=== PATIENT | male | born 1940 | race Caucasian/White ===

== ENCOUNTER 2017-12-16 08:19 | Inpatient (IN) | payer MEDICARE, OTHER ==
[2017-12-16] MEDS: ASPIRIN 325 MG TAB PO (08:58)
[2017-12-16 10:37] LABS: ADD MAN DIFF? NO
[2017-12-16 10:38] LABS: BASOPHILS % 0.4 % (0.0-2.0); EOSINOPHILS # 0.1 10^3/ul (0.0-0.5); EOSINOPHILS % 1.2 % (0.0-7.0); HEMATOCRIT 36.7 % (42.0-52.0); LYMPHOCYTES # 1.2 10^3/ul (0.8-2.9); MEAN CORPUSCULAR HGB CONC 32.7 g/dl (32.0-37.0); MEAN CORPUSCULAR VOLUME 88.6 fl (82.0-101.0); MEAN PLATELET VOLUME 8.4 fl (7.4-10.4); MONOCYTE # 0.5 10^3/ul (0.3-0.9); MONOCYTES % 6.5 % (0.0-11.0); NEUTROPHIL # 6.4 10^3/ul (1.6-7.5); NEUTROPHILS % 77.3 % (39.0-77.0); PLATELET COUNT 266 10^3/UL (140-415); RED BLOOD COUNT 4.14 10^6/ul (4.70-6.10); RED CELL DISTRIBUTION WIDTH 14.3 % (11.5-14.5)
[2017-12-16 10:38] LABS: WHITE BLOOD COUNT 8.3 10^3/ul (4.8-10.8)
[2017-12-16 10:59] LABS: ALANINE AMINOTRANSFERASE 21 IU/L (13-69); ALBUMIN 3.4 g/dl (3.3-4.9); ALBUMIN/GLOBULIN RATIO 1.17; ALKALINE PHOSPHATASE 114 IU/L (42-121); ANION GAP 13 (8-16); ASPARTATE AMINO TRANSFERASE 15 IU/L (15-46); BILIRUBIN,INDIRECT 0.5 mg/dl (0-1.1); BILIRUBIN,TOTAL 0.5 mg/dl (0.2-1.3); BLOOD UREA NITROGEN 23 mg/dl (7-20); CALCIUM 8.7 mg/dl (8.4-10.2); CARBON DIOXIDE 24 mmol/L (21-31); CHLORIDE 109 mmol/L (97-110); CREATINE KINASE 26 IU/L (23-200); CREATININE 1.04 mg/dl (0.61-1.24); GLUCOSE 93 mg/dl (70-220); POTASSIUM 4.1 mmol/L (3.5-5.1); SODIUM 142 mmol/L (135-144); TOTAL PROTEIN 6.3 g/dl (6.1-8.1)
[2017-12-16] MEDS ORDERED: ACETAMINOPHEN 325 MG TAB PO ×2 (11:00→17:30)
[2017-12-16] MEDS ORDERED: ONDANSETRON 4 MG INJ IV (11:00)
[2017-12-16 11:12] LABS: INR 1.12; PROTIME 14.6 Sec (11.9-14.9); PT RATIO 1.1
[2017-12-16 11:13] LABS: PARTIAL THROMBOPLASTIN TIME 35.1 Sec (25.0-35.0)
[2017-12-16 11:41] LABS: CK INDEX 1.7; CK-MB 0.44 ng/ml (0.0-2.4); TROPONIN-I < 0.012 ng/ml (0.000-0.120)
[2017-12-16 11:42] LABS: B-TYPE NATRIURETIC PEPTIDE 386 PG/ML (0-450)
[2017-12-16] MEDS ORDERED: NACL 0.9% 3 ML SYG IV (17:30)
[2017-12-16] MEDS ORDERED: GUAIFENESIN/DM 5ML CUP PO (17:30)
[2017-12-16] MEDS: GABAPENTIN 100 MG CAP PO (20:31)
[2017-12-16] MEDS: METOPROLOL 25 MG TAB PO (20:32)
[2017-12-16] MEDS: FAMOTIDINE 20 MG INJ IV (20:32)
[2017-12-16] MEDS: QUETIAPINE 25 MG TAB PO ×2 (20:32→21:00)
[2017-12-16] MEDS: morphine 2 MG INJ IV (20:33)
[2017-12-16] MEDS: MELATONIN 3 MG TABLET PO (21:00)
[2017-12-16 21:35] LABS: CREATINE KINASE 29 IU/L (23-200)
[2017-12-16 21:48] LABS: CK INDEX 1.8
[2017-12-16 21:55] LABS: CK-MB 0.52 ng/ml (0.0-2.4); TROPONIN-I < 0.012 ng/ml (0.000-0.120)
[2017-12-17] MEDS: morphine 2 MG INJ IV ×5 (00:32→21:22)
[2017-12-17 03:51] LABS: CREATINE KINASE 30 IU/L (23-200)
[2017-12-17 03:58] LABS: CK INDEX 1.4
[2017-12-17 04:07] LABS: CK-MB 0.43 ng/ml (0.0-2.4); TROPONIN-I < 0.012 ng/ml (0.000-0.120)
[2017-12-17 06:50] LABS: ADD MAN DIFF? NO; BASOPHILS % 0.3 % (0.0-2.0); EOSINOPHILS # 0.2 10^3/ul (0.0-0.5); EOSINOPHILS % 2.2 % (0.0-7.0); HEMATOCRIT 36.1 % (42.0-52.0); HEMOGLOBIN 11.4 g/dl (14.0-18.0); LYMPHOCYTES # 1.3 10^3/ul (0.8-2.9); LYMPHOCYTES % 18.4 % (15.0-51.0); MEAN CORPUSCULAR HEMOGLOBIN 28.6 pg (29.0-33.0); MEAN CORPUSCULAR HGB CONC 31.6 g/dl (32.0-37.0); MEAN CORPUSCULAR VOLUME 90.5 fl (82.0-101.0); MEAN PLATELET VOLUME 8.7 fl (7.4-10.4); MONOCYTE # 0.7 10^3/ul (0.3-0.9); MONOCYTES % 9.3 % (0.0-11.0); NEUTROPHIL # 4.8 10^3/ul (1.6-7.5); NEUTROPHILS % 69.2 % (39.0-77.0); PLATELET COUNT 243 10^3/UL (140-415); RED BLOOD COUNT 3.99 10^6/ul (4.70-6.10); RED CELL DISTRIBUTION WIDTH 14.6 % (11.5-14.5)
[2017-12-17 07:19] LABS: ALANINE AMINOTRANSFERASE 17 IU/L (13-69); ALBUMIN 3.2 g/dl (3.3-4.9); ALBUMIN/GLOBULIN RATIO 1.23; ALKALINE PHOSPHATASE 90 IU/L (42-121); ANION GAP 13 (8-16); ASPARTATE AMINO TRANSFERASE 13 IU/L (15-46); BILIRUBIN,INDIRECT 0.4 mg/dl (0-1.1); BILIRUBIN,TOTAL 0.4 mg/dl (0.2-1.3); BLOOD UREA NITROGEN 24 mg/dl (7-20); CALCIUM 8.4 mg/dl (8.4-10.2); CARBON DIOXIDE 26 mmol/L (21-31); CHLORIDE 107 mmol/L (97-110); CREATININE 1.07 mg/dl (0.61-1.24); GLUCOSE 94 mg/dl (70-220); SODIUM 142 mmol/L (135-144); TOTAL PROTEIN 5.8 g/dl (6.1-8.1)
[2017-12-17 07:48] LABS: HEMOGLOBIN A1C 5.4 % (0-5.9)
[2017-12-17] MEDS: METOPROLOL 25 MG TAB PO ×2 (09:00→21:00)
[2017-12-17] MEDS ORDERED: ENOXAPARIN 40 MG/0.4 ML SYG SC (09:00)
[2017-12-17] MEDS: QUETIAPINE 25 MG TAB PO ×3 (09:00→21:00)
[2017-12-17] MEDS ORDERED: ENOXAPARIN 30 MG/0.3 ML SYG SC (09:00)
[2017-12-17] MEDS: GABAPENTIN 100 MG CAP PO ×3 (09:02→20:49)
[2017-12-17] MEDS: ASPIRIN 81 MG TAB PO (09:02)
[2017-12-17] MEDS: FAMOTIDINE 20 MG INJ IV ×2 (09:02→20:49)
[2017-12-17] MEDS: AMIODARONE 200 MG TAB PO (09:04)
[2017-12-17] MEDS: FINASTERIDE 5 MG TAB PO (09:05)
[2017-12-17] MEDS: APIXABAN 5 MG TABLET PO ×2 (11:53→20:49)
[2017-12-17] MEDS: MELATONIN 3 MG TABLET PO (21:00)
[2017-12-18] MEDS ORDERED: PENDING SANTYL ORDER FOR WOUND CARE XX (01:30)
[2017-12-18] MEDS: morphine 2 MG INJ IV ×3 (02:43→20:49)
[2017-12-18 06:19] LABS: ADD MAN DIFF? NO
[2017-12-18 06:26] LABS: WHITE BLOOD COUNT 6.4 10^3/ul (4.8-10.8)
[2017-12-18 06:26] LABS: BASOPHILS % 0.6 % (0.0-2.0); EOSINOPHILS # 0.2 10^3/ul (0.0-0.5); EOSINOPHILS % 3.6 % (0.0-7.0); HEMATOCRIT 37.4 % (42.0-52.0); HEMOGLOBIN 11.4 g/dl (14.0-18.0); LYMPHOCYTES # 1.7 10^3/ul (0.8-2.9); LYMPHOCYTES % 25.7 % (15.0-51.0); MEAN CORPUSCULAR HEMOGLOBIN 28.4 pg (29.0-33.0); MEAN CORPUSCULAR HGB CONC 30.5 g/dl (32.0-37.0); MEAN CORPUSCULAR VOLUME 93.3 fl (82.0-101.0); MEAN PLATELET VOLUME 8.5 fl (7.4-10.4); MONOCYTE # 0.6 10^3/ul (0.3-0.9); MONOCYTES % 9.7 % (0.0-11.0); NEUTROPHIL # 3.9 10^3/ul (1.6-7.5); NEUTROPHILS % 60.1 % (39.0-77.0); PLATELET COUNT 244 10^3/UL (140-415); RED BLOOD COUNT 4.01 10^6/ul (4.70-6.10); RED CELL DISTRIBUTION WIDTH 14.6 % (11.5-14.5)
[2017-12-18 06:54] LABS: ANION GAP 12 (8-16); BLOOD UREA NITROGEN 22 mg/dl (7-20); CALCIUM 8.3 mg/dl (8.4-10.2); CARBON DIOXIDE 27 mmol/L (21-31); CHLORIDE 107 mmol/L (97-110); CREATININE 1.07 mg/dl (0.61-1.24); GLUCOSE 94 mg/dl (70-220); SODIUM 142 mmol/L (135-144)
[2017-12-18] MEDS: FAMOTIDINE 20 MG INJ IV (08:27)
[2017-12-18] MEDS: FINASTERIDE 5 MG TAB PO (08:29)
[2017-12-18] MEDS: APIXABAN 5 MG TABLET PO ×2 (08:29→20:46)
[2017-12-18] MEDS: GABAPENTIN 100 MG CAP PO ×3 (08:29→20:46)
[2017-12-18] MEDS: AMIODARONE 200 MG TAB PO (08:29)
[2017-12-18] MEDS: METOPROLOL 25 MG TAB PO ×2 (08:30→20:48)
[2017-12-18] MEDS: ASPIRIN 81 MG TAB PO (08:31)
[2017-12-18] MEDS: QUETIAPINE 25 MG TAB PO ×2 (08:31→20:48)
[2017-12-18] MEDS: MELATONIN 3 MG TABLET PO (20:48)
[2017-12-19] MEDS: morphine LIQ (10 MG/5 ML) CUP PO ×4 (00:30→20:28)
[2017-12-19] MEDS: MELATONIN 3 MG TABLET PO (01:45)
[2017-12-19 07:06] LABS: CHOL/HDL RATIO 3.7 RATIO; HDL CHOLESTEROL 48 mg/dl (31-75); LDL CHOLESTEROL,CALCULATED 117 mg/dl; TRIGLYCERIDES 68 mg/dl (0-149)
[2017-12-19 07:06] LABS: CHOLESTEROL 179 mg/dl (100-200)
[2017-12-19 07:21] LABS: FREE T4 (FREE THYROXINE) 1.79 ng/dl (0.85-1.93)
[2017-12-19] MEDS: GABAPENTIN 100 MG CAP PO ×3 (08:57→20:27)
[2017-12-19] MEDS: APIXABAN 5 MG TABLET PO ×2 (08:58→20:27)
[2017-12-19] MEDS: FINASTERIDE 5 MG TAB PO (08:58)
[2017-12-19] MEDS: METOPROLOL 25 MG TAB PO (09:00)
[2017-12-19] MEDS: QUETIAPINE 25 MG TAB PO ×2 (09:00→20:54)
[2017-12-19] MEDS: AMIODARONE 200 MG TAB PO (09:00)
[2017-12-19] MEDS ORDERED: hydrALAzine 20 MG INJ IV (21:00)
[2017-12-20] MEDS: MELATONIN 3 MG TABLET PO (00:25)
[2017-12-20] MEDS: morphine LIQ (10 MG/5 ML) CUP PO ×4 (03:18→20:19)
[2017-12-20 05:49] LABS: ADD MAN DIFF? NO
[2017-12-20 05:50] LABS: WHITE BLOOD COUNT 7.6 10^3/ul (4.8-10.8)
[2017-12-20 05:50] LABS: BASOPHILS % 0.5 % (0.0-2.0); EOSINOPHILS # 0.3 10^3/ul (0.0-0.5); EOSINOPHILS % 3.6 % (0.0-7.0); HEMATOCRIT 37.4 % (42.0-52.0); HEMOGLOBIN 11.8 g/dl (14.0-18.0); LYMPHOCYTES # 1.6 10^3/ul (0.8-2.9); LYMPHOCYTES % 21.2 % (15.0-51.0); MEAN CORPUSCULAR HEMOGLOBIN 29.2 pg (29.0-33.0); MEAN CORPUSCULAR HGB CONC 31.6 g/dl (32.0-37.0); MEAN CORPUSCULAR VOLUME 92.6 fl (82.0-101.0); MEAN PLATELET VOLUME 8.7 fl (7.4-10.4); MONOCYTE # 0.7 10^3/ul (0.3-0.9); MONOCYTES % 9.5 % (0.0-11.0); NEUTROPHIL # 4.9 10^3/ul (1.6-7.5); NEUTROPHILS % 64.7 % (39.0-77.0); PLATELET COUNT 247 10^3/UL (140-415); RED BLOOD COUNT 4.04 10^6/ul (4.70-6.10); RED CELL DISTRIBUTION WIDTH 14.3 % (11.5-14.5)
[2017-12-20 06:43] LABS: ANION GAP 11 (8-16); BLOOD UREA NITROGEN 26 mg/dl (7-20); CALCIUM 8.4 mg/dl (8.4-10.2); CARBON DIOXIDE 26 mmol/L (21-31); CHLORIDE 110 mmol/L (97-110); CREATININE 1.19 mg/dl (0.61-1.24); GLUCOSE 89 mg/dl (70-220); POTASSIUM 4.2 mmol/L (3.5-5.1); SODIUM 143 mmol/L (135-144)
[2017-12-20] MEDS: GABAPENTIN 100 MG CAP PO ×3 (08:09→20:18)
[2017-12-20] MEDS: FINASTERIDE 5 MG TAB PO (08:09)
[2017-12-20] MEDS: APIXABAN 5 MG TABLET PO ×2 (08:09→20:18)
[2017-12-20] MEDS: AMIODARONE 200 MG TAB PO (08:10)
[2017-12-20] MEDS: QUETIAPINE 25 MG TAB PO ×2 (08:12→20:19)
[2017-12-21] MEDS: morphine LIQ (10 MG/5 ML) CUP PO ×4 (00:24→23:13)
[2017-12-21] MEDS: MELATONIN 3 MG TABLET PO ×2 (00:25→23:12)
[2017-12-21] MEDS: ACETAMINOPHEN 325 MG TAB PO ×2 (03:17→13:08)
[2017-12-21 06:41] LABS: ADD MAN DIFF? NO
[2017-12-21 06:45] LABS: BASOPHILS % 0.5 % (0.0-2.0); EOSINOPHILS # 0.2 10^3/ul (0.0-0.5); EOSINOPHILS % 3.7 % (0.0-7.0); HEMATOCRIT 35.5 % (42.0-52.0); HEMOGLOBIN 11.1 g/dl (14.0-18.0); LYMPHOCYTES # 1.7 10^3/ul (0.8-2.9); MEAN CORPUSCULAR HEMOGLOBIN 28.6 pg (29.0-33.0); MEAN CORPUSCULAR HGB CONC 31.3 g/dl (32.0-37.0); MEAN CORPUSCULAR VOLUME 91.5 fl (82.0-101.0); MONOCYTE # 0.6 10^3/ul (0.3-0.9); MONOCYTES % 10.3 % (0.0-11.0); NEUTROPHIL # 3.6 10^3/ul (1.6-7.5); PLATELET COUNT 242 10^3/UL (140-415); RED BLOOD COUNT 3.88 10^6/ul (4.70-6.10); RED CELL DISTRIBUTION WIDTH 14.5 % (11.5-14.5)
[2017-12-21 06:45] LABS: WHITE BLOOD COUNT 6.2 10^3/ul (4.8-10.8)
[2017-12-21 07:11] LABS: ANION GAP 13 (8-16); BLOOD UREA NITROGEN 24 mg/dl (7-20); CALCIUM 8.3 mg/dl (8.4-10.2); CARBON DIOXIDE 26 mmol/L (21-31); CHLORIDE 106 mmol/L (97-110); CREATININE 1.04 mg/dl (0.61-1.24); GLUCOSE 89 mg/dl (70-220); POTASSIUM 4.4 mmol/L (3.5-5.1); SODIUM 141 mmol/L (135-144)
[2017-12-21] MEDS: QUETIAPINE 25 MG TAB PO ×2 (09:00→20:29)
[2017-12-21] MEDS: AMIODARONE 200 MG TAB PO (09:06)
[2017-12-21] MEDS: GABAPENTIN 100 MG CAP PO ×3 (09:06→20:28)
[2017-12-21] MEDS: APIXABAN 5 MG TABLET PO ×2 (09:07→20:29)
[2017-12-21] MEDS: FINASTERIDE 5 MG TAB PO (09:07)
[2017-12-21] MEDS: AMLODIPINE 2.5 MG TAB PO (09:08)
[2017-12-21] MEDS: NITROGLYCERIN (SL) 0.4 MG TAB SL (12:09)
[2017-12-22] MEDS: ACETAMINOPHEN 325 MG TAB PO ×2 (02:38→11:37)
[2017-12-22] MEDS: morphine LIQ (10 MG/5 ML) CUP PO ×4 (03:27→20:11)
[2017-12-22 06:33] LABS: ADD MAN DIFF? NO
[2017-12-22 06:41] LABS: BASOPHILS % 0.6 % (0.0-2.0); EOSINOPHILS # 0.3 10^3/ul (0.0-0.5); HEMATOCRIT 36.3 % (42.0-52.0); HEMOGLOBIN 11.6 g/dl (14.0-18.0); LYMPHOCYTES # 1.7 10^3/ul (0.8-2.9); LYMPHOCYTES % 26.3 % (15.0-51.0); MEAN CORPUSCULAR HEMOGLOBIN 29.1 pg (29.0-33.0); MONOCYTE # 0.6 10^3/ul (0.3-0.9); MONOCYTES % 9.4 % (0.0-11.0); NEUTROPHIL # 3.9 10^3/ul (1.6-7.5); NEUTROPHILS % 59.4 % (39.0-77.0); PLATELET COUNT 252 10^3/UL (140-415); RED BLOOD COUNT 3.99 10^6/ul (4.70-6.10); RED CELL DISTRIBUTION WIDTH 14.5 % (11.5-14.5)
[2017-12-22 06:41] LABS: WHITE BLOOD COUNT 6.6 10^3/ul (4.8-10.8)
[2017-12-22 07:23] LABS: ANION GAP 13 (8-16); BLOOD UREA NITROGEN 25 mg/dl (7-20); CALCIUM 8.6 mg/dl (8.4-10.2); CARBON DIOXIDE 26 mmol/L (21-31); CHLORIDE 107 mmol/L (97-110); CREATININE 1.02 mg/dl (0.61-1.24); GLUCOSE 98 mg/dl (70-220); POTASSIUM 4.4 mmol/L (3.5-5.1); SODIUM 142 mmol/L (135-144)
[2017-12-22] MEDS: QUETIAPINE 25 MG TAB PO ×3 (09:00→21:00)
[2017-12-22] MEDS: GABAPENTIN 100 MG CAP PO ×3 (09:22→21:39)
[2017-12-22] MEDS: APIXABAN 5 MG TABLET PO ×2 (09:23→21:39)
[2017-12-22] MEDS: FINASTERIDE 5 MG TAB PO (09:27)
[2017-12-22] MEDS: AMLODIPINE 2.5 MG TAB PO ×2 (09:27→21:43)
[2017-12-22] MEDS: AMIODARONE 200 MG TAB PO (09:28)
[2017-12-23] MEDS: MELATONIN 3 MG TABLET PO ×2 (00:02→20:39)
[2017-12-23] MEDS: morphine LIQ (10 MG/5 ML) CUP PO ×3 (00:15→23:42)
[2017-12-23] MEDS: QUETIAPINE 25 MG TAB PO ×3 (09:00→20:41)
[2017-12-23] MEDS: GABAPENTIN 100 MG CAP PO ×3 (09:02→20:40)
[2017-12-23] MEDS: APIXABAN 5 MG TABLET PO ×2 (09:03→20:38)
[2017-12-23] MEDS: FINASTERIDE 5 MG TAB PO (09:03)
[2017-12-23] MEDS: AMLODIPINE 2.5 MG TAB PO ×2 (09:03→20:39)
[2017-12-23] MEDS: ACETAMINOPHEN 325 MG TAB PO (09:13)
[2017-12-23] MEDS: NITROGLYCERIN (SL) 0.4 MG TAB SL (23:44)
[2017-12-24] MEDS: morphine LIQ (10 MG/5 ML) CUP PO ×3 (03:48→21:25)
[2017-12-24 07:22] LABS: ANION GAP 12 (8-16); BLOOD UREA NITROGEN 23 mg/dl (7-20); CALCIUM 8.7 mg/dl (8.4-10.2); CARBON DIOXIDE 26 mmol/L (21-31); CHLORIDE 109 mmol/L (97-110); CREATININE 1.05 mg/dl (0.61-1.24); GLUCOSE 92 mg/dl (70-220); POTASSIUM 4.6 mmol/L (3.5-5.1); SODIUM 142 mmol/L (135-144)
[2017-12-24] MEDS: GABAPENTIN 100 MG CAP PO ×3 (08:48→21:15)
[2017-12-24] MEDS: FINASTERIDE 5 MG TAB PO (08:48)
[2017-12-24] MEDS: APIXABAN 5 MG TABLET PO ×2 (08:48→21:15)
[2017-12-24] MEDS: QUETIAPINE 25 MG TAB PO ×2 (08:49→21:00)
[2017-12-24] MEDS: AMLODIPINE 2.5 MG TAB PO ×2 (08:49→21:15)
[2017-12-24] MEDS: MELATONIN 3 MG TABLET PO (21:15)
[2017-12-25] MEDS: morphine LIQ (10 MG/5 ML) CUP PO ×4 (01:29→22:13)
[2017-12-25 08:04] LABS: ADD MAN DIFF? NO
[2017-12-25 08:09] LABS: BASOPHILS % 0.6 % (0.0-2.0); EOSINOPHILS # 0.2 10^3/ul (0.0-0.5); EOSINOPHILS % 3.1 % (0.0-7.0); HEMATOCRIT 36.7 % (42.0-52.0); HEMOGLOBIN 11.7 g/dl (14.0-18.0); LYMPHOCYTES # 1.8 10^3/ul (0.8-2.9); LYMPHOCYTES % 28.8 % (15.0-51.0); MEAN CORPUSCULAR HEMOGLOBIN 28.8 pg (29.0-33.0); MEAN CORPUSCULAR HGB CONC 31.9 g/dl (32.0-37.0); MEAN CORPUSCULAR VOLUME 90.4 fl (82.0-101.0); MEAN PLATELET VOLUME 8.6 fl (7.4-10.4); MONOCYTE # 0.8 10^3/ul (0.3-0.9); MONOCYTES % 13.1 % (0.0-11.0); NEUTROPHIL # 3.4 10^3/ul (1.6-7.5); NEUTROPHILS % 54.1 % (39.0-77.0); PLATELET COUNT 244 10^3/UL (140-415); RED BLOOD COUNT 4.06 10^6/ul (4.70-6.10); RED CELL DISTRIBUTION WIDTH 14.2 % (11.5-14.5)
[2017-12-25 08:09] LABS: WHITE BLOOD COUNT 6.2 10^3/ul (4.8-10.8)
[2017-12-25] MEDS: QUETIAPINE 25 MG TAB PO ×2 (09:00→21:00)
[2017-12-25] MEDS: APIXABAN 5 MG TABLET PO ×2 (09:08→21:25)
[2017-12-25] MEDS: FINASTERIDE 5 MG TAB PO (09:08)
[2017-12-25] MEDS: GABAPENTIN 100 MG CAP PO ×3 (09:08→21:25)
[2017-12-25] MEDS: AMLODIPINE 2.5 MG TAB PO ×2 (09:08→21:26)
[2017-12-25] MEDS: MELATONIN 3 MG TABLET PO (21:26)
[2017-12-26] MEDS: morphine LIQ (10 MG/5 ML) CUP PO ×2 (02:24→10:22)
[2017-12-26 08:20] LABS: ANION GAP 13 (8-16); BLOOD UREA NITROGEN 28 mg/dl (7-20); CALCIUM 8.6 mg/dl (8.4-10.2); CARBON DIOXIDE 24 mmol/L (21-31); CHLORIDE 110 mmol/L (97-110); CREATININE 1.12 mg/dl (0.61-1.24); GLUCOSE 82 mg/dl (70-220); MAGNESIUM 2.2 mg/dl (1.7-2.5); POTASSIUM 4.5 mmol/L (3.5-5.1); SODIUM 142 mmol/L (135-144)
[2017-12-26] MEDS: AMLODIPINE 2.5 MG TAB PO (08:31)
[2017-12-26] MEDS: FINASTERIDE 5 MG TAB PO (08:31)
[2017-12-26] MEDS: APIXABAN 5 MG TABLET PO (08:31)
[2017-12-26] MEDS: GABAPENTIN 100 MG CAP PO ×2 (08:31→12:56)
[2017-12-26] MEDS: QUETIAPINE 25 MG TAB PO (08:32)
[2017-12-26] MEDS: ONDANSETRON 4 MG INJ IV (10:25)
[2017-12-27] MEDS ORDERED: AMLODIPINE 5 MG TAB PO (09:00)
== END 2017-12-26 17:07 | DRG 310 ==
LOC: E/R 08:19 → TEL 19:53 → E/R 20:02 → TEL 10:41
DX: R00.1 Bradycardia, unspecified (principal); F22 Delusional disorders; I10 Essential (primary) hypertension; I25.10 Atherosclerotic heart disease of native coronary artery without angina pectoris; I48.0 Paroxysmal atrial fibrillation; R07.89 Other chest pain; Y92.230 Patient room in hospital as the place of occurrence of the external cause; T46.2X5A Adverse effect of other antidysrhythmic drugs, initial encounter; Z79.82 Long term (current) use of aspirin; Z79.02 Long term (current) use of antithrombotics/antiplatelets
CPT/HCPCS: 71045; 80048; 80053; 80061; 82550; 82553; 83036; 83735; 83880; 84439; 84443; 84484; 85025; 85610; 85730; 87081; 93005; 93306; 99217; 99285-25; G0378

== ENCOUNTER 2018-05-19 03:55 | Emergency (ER) | payer MEDICARE, OTHER ==
[2018-05-19] MEDS: ONDANSETRON (ODT) 4 MG TAB ODT (04:57)
[2018-05-19] MEDS: HYDROCODONE/APAP (5/325) TAB PO (04:57)
== END 2018-05-19 10:44 | disposition home or self-care (01) ==
LOC: E/R 03:55
DX: S29.011A Strain of muscle and tendon of front wall of thorax, initial encounter (principal); R40.2252 Coma scale, best verbal response, oriented, at arrival to emergency department; R40.2362 Coma scale, best motor response, obeys commands, at arrival to emergency department; R40.2142 Coma scale, eyes open, spontaneous, at arrival to emergency department; I11.0 Hypertensive heart disease with heart failure; I50.9 Heart failure, unspecified; I25.10 Atherosclerotic heart disease of native coronary artery without angina pectoris; X58.XXXA Exposure to other specified factors, initial encounter; Y92.129 Unspecified place in nursing home as the place of occurrence of the external cause; Z79.01 Long term (current) use of anticoagulants
CPT/HCPCS: 71045; 93005; 99284-25

== ENCOUNTER 2018-05-22 11:26 | Inpatient (IN) | payer MEDICARE, OTHER ==
[2018-05-22 12:16] LABS: ADD MAN DIFF? NO
[2018-05-22 12:21] LABS: WHITE BLOOD COUNT 19.5 10^3/ul (4.8-10.8)
[2018-05-22 12:21] LABS: BASOPHILS % 0.1 % (0.0-2.0); HEMATOCRIT 42.8 % (42.0-52.0); HEMOGLOBIN 13.5 g/dl (14.0-18.0); LYMPHOCYTES # 0.8 10^3/ul (0.8-2.9); LYMPHOCYTES % 3.9 % (15.0-51.0); MEAN CORPUSCULAR HEMOGLOBIN 27.3 pg (29.0-33.0); MEAN CORPUSCULAR HGB CONC 31.5 g/dl (32.0-37.0); MEAN CORPUSCULAR VOLUME 86.6 fl (82.0-101.0); MONOCYTE # 0.8 10^3/ul (0.3-0.9); MONOCYTES % 4.2 % (0.0-11.0); NEUTROPHIL # 17.8 10^3/ul (1.6-7.5); NEUTROPHILS % 91.2 % (39.0-77.0); PLATELET COUNT 387 10^3/UL (140-415); RED BLOOD COUNT 4.94 10^6/ul (4.70-6.10); RED CELL DISTRIBUTION WIDTH 14.2 % (11.5-14.5)
[2018-05-22 12:39] LABS: ALANINE AMINOTRANSFERASE 14 IU/L (13-69); ALBUMIN 3.8 g/dl (3.3-4.9); ALBUMIN/GLOBULIN RATIO 1.26; ALKALINE PHOSPHATASE 141 IU/L (42-121); ANION GAP 12 (5-13); ASPARTATE AMINO TRANSFERASE 22 IU/L (15-46); BILIRUBIN,INDIRECT 0.7 mg/dl (0-1.1); BILIRUBIN,TOTAL 0.7 mg/dl (0.2-1.3); BLOOD UREA NITROGEN 31 mg/dl (7-20); CALCIUM 8.9 mg/dl (8.4-10.2); CARBON DIOXIDE 23 mmol/L (21-31); CHLORIDE 107 mmol/L (97-110); CREATININE 0.92 mg/dl (0.61-1.24); GLUCOSE 143 mg/dl (70-220); LIPASE 11 U/L (23-300); POTASSIUM 4.7 mmol/L (3.5-5.1); SODIUM 142 mmol/L (135-144); TOTAL PROTEIN 6.8 g/dl (6.1-8.1)
[2018-05-22 12:50] LABS: TROPONIN-I < 0.012 ng/ml (0.000-0.120)
[2018-05-22] MEDS: SOD CHLORIDE 0.9% 1,000 ML IV (13:51)
[2018-05-22] MEDS: PIPER-TAZO 3.375 GM IV (PMX) 100 ML IVPB (13:53)
[2018-05-22 13:56] LABS: ADD UMIC YES; UR ASCORBIC ACID 40 mg/dL (NEGATIVE); UR BACTERIA FEW /HPF (NONE SEEN); UR BILIRUBIN (Dip) 2+ mg/dL (NEGATIVE); UR BLOOD (Dip) NEGATIVE (NEGATIVE); UR CLARITY SLIGHTLY CLOUDY (CLEAR); UR COLOR AMBER (YELLOW); UR GLUCOSE (Dip) NEGATIVE (NEGATIVE); UR KETONES (Dip) TRACE mg/dL (NEGATIVE); UR LEUKOCYTE ESTERASE (Dip) NEGATIVE Leu/ul (NEGATIVE); UR MUCUS FEW /HPF (NONE SEEN); UR NITRITE (Dip) NEGATIVE (NEGATIVE); UR RBC 1 /HPF (0-5); UR SPECIFIC GRAVITY (Dip) 1.034 (1.003-1.030); UR SQUAMOUS EPITHELIAL CELL FEW /HPF (FEW); UR TOTAL PROTEIN (Dip) 1+ mg/dl (NEGATIVE); UR UROBILINOGEN (Dip) 2+ mg/dL (NEGATIVE); UR WBC 2 /HPF (0-5)
[2018-05-22] MEDS ORDERED: ONDANSETRON 4 MG INJ IV (14:00)
[2018-05-22] MEDS ORDERED: ACETAMINOPHEN 325 MG TAB PO (14:00)
[2018-05-22] MEDS ORDERED: ENOXAPARIN 40 MG/0.4 ML SYG SC (15:30)
[2018-05-22] MEDS: NA PHOSPHATE/BIPHOS 133 ML ENEMA PR (15:50)
[2018-05-22] MEDS: D5W-0.45 NACL + KCL 20 MEQ 1,000 ML IV (18:45)
[2018-05-22] MEDS ORDERED: DOCUSATE SODIUM 100 MG CAP PO (19:00)
[2018-05-22] MEDS ORDERED: NITROGLYCERIN (SL) 0.4 MG TAB SL (19:00)
[2018-05-22] MEDS: APIXABAN 5 MG TABLET PO (20:46)
[2018-05-22] MEDS: MELATONIN 3 MG TABLET PO (20:46)
[2018-05-22] MEDS: GABAPENTIN 100 MG CAP PO (20:47)
[2018-05-22] MEDS: QUETIAPINE 25 MG TAB PO (20:48)
[2018-05-22] MEDS: MAGNESIUM CITRATE 300 ML BTL PO (20:48)
[2018-05-22] MEDS: metroNIDAZOLE 500 MG/NS (PMX) 100 ML IVPB (21:53)
[2018-05-22] MEDS: VANCOMYCIN HCL 250 MG/5ML POSYG PO (23:44)
[2018-05-23] MEDS: morphine 2 MG INJ IV ×3 (00:25→21:21)
[2018-05-23] MEDS: ONDANSETRON 4 MG INJ IV (00:25)
[2018-05-23] MEDS: D5W-0.45 NACL + KCL 20 MEQ 1,000 ML IV ×4 (00:26→21:22)
[2018-05-23] MEDS: ACETAMINOPHEN 325 MG TAB PO (03:51)
[2018-05-23] MEDS: metroNIDAZOLE 500 MG/NS (PMX) 100 ML IVPB ×3 (05:25→21:16)
[2018-05-23] MEDS: PANTOPRAZOLE 40 MG INJ IV (05:25)
[2018-05-23] MEDS: OXYCODONE/ACETAMINOPHEN (10/325) TAB PO ×3 (05:26→14:58)
[2018-05-23] MEDS: VANCOMYCIN HCL 250 MG/5ML POSYG PO ×3 (05:26→18:11)
[2018-05-23 08:47] LABS: ADD MAN DIFF? NO
[2018-05-23 08:54] LABS: BASOPHILS % 0.1 % (0.0-2.0); EOSINOPHILS % 0.1 % (0.0-7.0); HEMATOCRIT 38.5 % (42.0-52.0); HEMOGLOBIN 11.6 g/dl (14.0-18.0); LYMPHOCYTES # 1.3 10^3/ul (0.8-2.9); LYMPHOCYTES % 7.8 % (15.0-51.0); MEAN CORPUSCULAR HEMOGLOBIN 27.1 pg (29.0-33.0); MEAN CORPUSCULAR HGB CONC 30.1 g/dl (32.0-37.0); MONOCYTE # 1.4 10^3/ul (0.3-0.9); MONOCYTES % 8.8 % (0.0-11.0); NEUTROPHIL # 13.5 10^3/ul (1.6-7.5); NEUTROPHILS % 82.5 % (39.0-77.0); PLATELET COUNT 287 10^3/UL (140-415); RED BLOOD COUNT 4.28 10^6/ul (4.70-6.10); RED CELL DISTRIBUTION WIDTH 14.6 % (11.5-14.5)
[2018-05-23 08:54] LABS: WHITE BLOOD COUNT 16.3 10^3/ul (4.8-10.8)
[2018-05-23] MEDS: QUETIAPINE 25 MG TAB PO ×2 (09:00→21:00)
[2018-05-23] MEDS: FINASTERIDE 5 MG TAB PO (09:06)
[2018-05-23] MEDS: APIXABAN 5 MG TABLET PO ×2 (09:06→21:15)
[2018-05-23] MEDS: AMLODIPINE 5 MG TAB PO (09:06)
[2018-05-23] MEDS: MULTIVITAMINS/MINERALS TAB PO (09:06)
[2018-05-23] MEDS: GABAPENTIN 100 MG CAP PO ×3 (09:06→21:15)
[2018-05-23 09:21] LABS: ALANINE AMINOTRANSFERASE 16 IU/L (13-69); ALBUMIN 3.2 g/dl (3.3-4.9); ALBUMIN/GLOBULIN RATIO 1.45; ALKALINE PHOSPHATASE 93 IU/L (42-121); ANION GAP 7 (5-13); ASPARTATE AMINO TRANSFERASE 16 IU/L (15-46); BILIRUBIN,INDIRECT 0.4 mg/dl (0-1.1); BILIRUBIN,TOTAL 0.4 mg/dl (0.2-1.3); BLOOD UREA NITROGEN 27 mg/dl (7-20); CALCIUM 8.3 mg/dl (8.4-10.2); CARBON DIOXIDE 25 mmol/L (21-31); CHLORIDE 109 mmol/L (97-110); CHOL/HDL RATIO 3.1 RATIO; CHOLESTEROL 162 mg/dl (100-200); CREATININE 0.84 mg/dl (0.61-1.24); GLUCOSE 108 mg/dl (70-220); HDL CHOLESTEROL 51 mg/dl (31-75); LDL CHOLESTEROL,CALCULATED 97 mg/dl; MAGNESIUM 2.8 mg/dl (1.7-2.5); POTASSIUM 4.4 mmol/L (3.5-5.1); SODIUM 141 mmol/L (135-144); TOTAL PROTEIN 5.4 g/dl (6.1-8.1); TRIGLYCERIDES 71 mg/dl (0-149)
[2018-05-23 09:41] LABS: THYROID STIMULATING HORMONE 0.183 MIU/L (0.465-4.680)
[2018-05-23] MEDS: BALSAM PERU/CASTOR OIL 60 GM TUBE TOP (21:16)
[2018-05-24] MEDS: VANCOMYCIN HCL 250 MG/5ML POSYG PO ×4 (01:06→18:40)
[2018-05-24] MEDS: OXYCODONE/ACETAMINOPHEN (10/325) TAB PO ×4 (01:10→21:01)
[2018-05-24] MEDS: MELATONIN 3 MG TABLET PO (01:11)
[2018-05-24] MEDS: metroNIDAZOLE 500 MG/NS (PMX) 100 ML IVPB ×3 (05:59→21:00)
[2018-05-24] MEDS: PANTOPRAZOLE 40 MG INJ IV (06:00)
[2018-05-24] MEDS: morphine 2 MG INJ IV (06:05)
[2018-05-24 07:19] LABS: ADD MAN DIFF? NO
[2018-05-24 07:24] LABS: BASOPHILS % 0.2 % (0.0-2.0); EOSINOPHILS # 0.1 10^3/ul (0.0-0.5); EOSINOPHILS % 1.3 % (0.0-7.0); HEMATOCRIT 32.8 % (42.0-52.0); HEMOGLOBIN 10.1 g/dl (14.0-18.0); LYMPHOCYTES # 1.7 10^3/ul (0.8-2.9); LYMPHOCYTES % 19.2 % (15.0-51.0); MEAN CORPUSCULAR HEMOGLOBIN 27.4 pg (29.0-33.0); MEAN CORPUSCULAR HGB CONC 30.8 g/dl (32.0-37.0); MEAN CORPUSCULAR VOLUME 89.1 fl (82.0-101.0); MEAN PLATELET VOLUME 8.7 fl (7.4-10.4); MONOCYTES % 11.5 % (0.0-11.0); NEUTROPHIL # 6.1 10^3/ul (1.6-7.5); NEUTROPHILS % 67.5 % (39.0-77.0); PLATELET COUNT 265 10^3/UL (140-415); RED BLOOD COUNT 3.68 10^6/ul (4.70-6.10); RED CELL DISTRIBUTION WIDTH 14.6 % (11.5-14.5)
[2018-05-24 07:44] LABS: ANION GAP 7 (5-13); BLOOD UREA NITROGEN 16 mg/dl (7-20); CALCIUM 7.9 mg/dl (8.4-10.2); CARBON DIOXIDE 23 mmol/L (21-31); CHLORIDE 109 mmol/L (97-110); CREATININE 0.78 mg/dl (0.61-1.24); GLUCOSE 88 mg/dl (70-220); POTASSIUM 4.3 mmol/L (3.5-5.1); SODIUM 139 mmol/L (135-144)
[2018-05-24] MEDS: GABAPENTIN 100 MG CAP PO ×3 (08:55→20:51)
[2018-05-24] MEDS: FINASTERIDE 5 MG TAB PO (08:55)
[2018-05-24] MEDS: MULTIVITAMINS/MINERALS TAB PO (08:55)
[2018-05-24] MEDS: APIXABAN 5 MG TABLET PO ×2 (08:55→20:51)
[2018-05-24] MEDS: AMLODIPINE 5 MG TAB PO (08:56)
[2018-05-24] MEDS: QUETIAPINE 25 MG TAB PO ×2 (08:57→21:00)
[2018-05-24] MEDS: D5W-0.45 NACL + KCL 20 MEQ 1,000 ML IV ×3 (08:58→20:58)
[2018-05-24] MEDS: BALSAM PERU/CASTOR OIL 60 GM TUBE TOP ×2 (08:59→20:52)
[2018-05-25] MEDS: VANCOMYCIN HCL 250 MG/5ML POSYG PO ×3 (00:43→12:47)
[2018-05-25] MEDS: OXYCODONE/ACETAMINOPHEN (10/325) TAB PO ×4 (01:37→20:37)
[2018-05-25] MEDS: MELATONIN 3 MG TABLET PO ×2 (01:37→20:43)
[2018-05-25 05:21] LABS: ADD MAN DIFF? NO; BASOPHILS % 0.3 % (0.0-2.0); EOSINOPHILS # 0.2 10^3/ul (0.0-0.5); EOSINOPHILS % 2.5 % (0.0-7.0); HEMATOCRIT 31.3 % (42.0-52.0); HEMOGLOBIN 9.8 g/dl (14.0-18.0); LYMPHOCYTES # 1.1 10^3/ul (0.8-2.9); LYMPHOCYTES % 15.8 % (15.0-51.0); MEAN CORPUSCULAR HEMOGLOBIN 27.5 pg (29.0-33.0); MEAN CORPUSCULAR HGB CONC 31.3 g/dl (32.0-37.0); MEAN CORPUSCULAR VOLUME 87.7 fl (82.0-101.0); MEAN PLATELET VOLUME 8.7 fl (7.4-10.4); MONOCYTE # 0.9 10^3/ul (0.3-0.9); MONOCYTES % 12.3 % (0.0-11.0); NEUTROPHIL # 4.9 10^3/ul (1.6-7.5); NEUTROPHILS % 68.7 % (39.0-77.0); PLATELET COUNT 271 10^3/UL (140-415); RED BLOOD COUNT 3.57 10^6/ul (4.70-6.10); RED CELL DISTRIBUTION WIDTH 14.4 % (11.5-14.5)
[2018-05-25 05:21] LABS: WHITE BLOOD COUNT 7.1 10^3/ul (4.8-10.8)
[2018-05-25] MEDS: PANTOPRAZOLE 40 MG INJ IV (05:54)
[2018-05-25] MEDS: metroNIDAZOLE 500 MG/NS (PMX) 100 ML IVPB (05:55)
[2018-05-25 06:34] LABS: ANION GAP 4 (5-13); BLOOD UREA NITROGEN 9 mg/dl (7-20); CALCIUM 7.8 mg/dl (8.4-10.2); CARBON DIOXIDE 24 mmol/L (21-31); CHLORIDE 110 mmol/L (97-110); CREATININE 0.74 mg/dl (0.61-1.24); GLUCOSE 99 mg/dl (70-220); POTASSIUM 4.1 mmol/L (3.5-5.1); SODIUM 138 mmol/L (135-144)
[2018-05-25] MEDS: QUETIAPINE 25 MG TAB PO ×2 (08:57→20:35)
[2018-05-25] MEDS: APIXABAN 5 MG TABLET PO ×2 (08:58→20:36)
[2018-05-25] MEDS: GABAPENTIN 100 MG CAP PO ×3 (08:58→20:36)
[2018-05-25] MEDS: FINASTERIDE 5 MG TAB PO (08:59)
[2018-05-25] MEDS: AMLODIPINE 5 MG TAB PO (08:59)
[2018-05-25] MEDS: MULTIVITAMINS/MINERALS TAB PO (08:59)
[2018-05-25] MEDS: BALSAM PERU/CASTOR OIL 60 GM TUBE TOP ×2 (09:00→20:43)
[2018-05-25] MEDS: D5W-0.45 NACL + KCL 20 MEQ 1,000 ML IV ×2 (11:03→22:11)
[2018-05-25] MEDS: metroNIDAZOLE 500 MG TAB PO ×2 (15:13→22:48)
[2018-05-26] MEDS: OXYCODONE/ACETAMINOPHEN (10/325) TAB PO ×6 (01:53→23:05)
[2018-05-26 05:56] LABS: ADD MAN DIFF? NO
[2018-05-26 05:57] LABS: BASOPHILS % 0.3 % (0.0-2.0); EOSINOPHILS # 0.2 10^3/ul (0.0-0.5); EOSINOPHILS % 3.3 % (0.0-7.0); HEMATOCRIT 33.6 % (42.0-52.0); HEMOGLOBIN 10.4 g/dl (14.0-18.0); LYMPHOCYTES # 1.2 10^3/ul (0.8-2.9); LYMPHOCYTES % 18.9 % (15.0-51.0); MEAN CORPUSCULAR HEMOGLOBIN 27.2 pg (29.0-33.0); MEAN CORPUSCULAR VOLUME 87.7 fl (82.0-101.0); MEAN PLATELET VOLUME 8.3 fl (7.4-10.4); MONOCYTE # 0.7 10^3/ul (0.3-0.9); MONOCYTES % 11.3 % (0.0-11.0); NEUTROPHIL # 4.2 10^3/ul (1.6-7.5); NEUTROPHILS % 65.9 % (39.0-77.0); PLATELET COUNT 265 10^3/UL (140-415); RED BLOOD COUNT 3.83 10^6/ul (4.70-6.10); RED CELL DISTRIBUTION WIDTH 14.4 % (11.5-14.5)
[2018-05-26 05:57] LABS: WHITE BLOOD COUNT 6.4 10^3/ul (4.8-10.8)
[2018-05-26] MEDS: PANTOPRAZOLE 40 MG INJ IV (06:43)
[2018-05-26] MEDS: metroNIDAZOLE 500 MG TAB PO ×3 (06:44→22:10)
[2018-05-26 06:57] LABS: ANION GAP 8 (5-13); BLOOD UREA NITROGEN 10 mg/dl (7-20); CALCIUM 8.1 mg/dl (8.4-10.2); CARBON DIOXIDE 26 mmol/L (21-31); CHLORIDE 108 mmol/L (97-110); CREATININE 0.86 mg/dl (0.61-1.24); GLUCOSE 110 mg/dl (70-220); POTASSIUM 4.3 mmol/L (3.5-5.1); SODIUM 142 mmol/L (135-144)
[2018-05-26] MEDS: GABAPENTIN 100 MG CAP PO ×3 (08:33→20:46)
[2018-05-26] MEDS: MULTIVITAMINS/MINERALS TAB PO (08:33)
[2018-05-26] MEDS: APIXABAN 5 MG TABLET PO ×2 (08:33→20:45)
[2018-05-26] MEDS: BALSAM PERU/CASTOR OIL 60 GM TUBE TOP ×2 (08:33→22:10)
[2018-05-26] MEDS: AMLODIPINE 5 MG TAB PO (08:33)
[2018-05-26] MEDS: FINASTERIDE 5 MG TAB PO (08:33)
[2018-05-26] MEDS: D5W-0.45 NACL + KCL 20 MEQ 1,000 ML IV ×2 (08:34→18:58)
[2018-05-26] MEDS: QUETIAPINE 25 MG TAB PO ×2 (09:00→20:46)
[2018-05-26] MEDS: MELATONIN 3 MG TABLET PO (23:06)
[2018-05-27] MEDS: PANTOPRAZOLE 40 MG INJ IV (05:26)
[2018-05-27] MEDS: D5W-0.45 NACL + KCL 20 MEQ 1,000 ML IV ×2 (05:26→16:27)
[2018-05-27] MEDS: metroNIDAZOLE 500 MG TAB PO ×3 (05:27→21:18)
[2018-05-27] MEDS: OXYCODONE/ACETAMINOPHEN (10/325) TAB PO ×3 (05:27→21:20)
[2018-05-27 05:59] LABS: WHITE BLOOD COUNT 7.8 10^3/ul (4.8-10.8)
[2018-05-27 05:59] LABS: ADD MAN DIFF? NO; BASOPHILS % 0.3 % (0.0-2.0); EOSINOPHILS # 0.3 10^3/ul (0.0-0.5); EOSINOPHILS % 3.2 % (0.0-7.0); HEMATOCRIT 37.4 % (42.0-52.0); HEMOGLOBIN 11.8 g/dl (14.0-18.0); LYMPHOCYTES % 13.3 % (15.0-51.0); MEAN CORPUSCULAR HEMOGLOBIN 27.3 pg (29.0-33.0); MEAN CORPUSCULAR HGB CONC 31.6 g/dl (32.0-37.0); MEAN CORPUSCULAR VOLUME 86.4 fl (82.0-101.0); MEAN PLATELET VOLUME 8.5 fl (7.4-10.4); MONOCYTE # 0.8 10^3/ul (0.3-0.9); MONOCYTES % 10.5 % (0.0-11.0); NEUTROPHIL # 5.7 10^3/ul (1.6-7.5); NEUTROPHILS % 72.2 % (39.0-77.0); PLATELET COUNT 291 10^3/UL (140-415); RED BLOOD COUNT 4.33 10^6/ul (4.70-6.10); RED CELL DISTRIBUTION WIDTH 14.4 % (11.5-14.5)
[2018-05-27 06:20] LABS: ANION GAP 11 (5-13); BLOOD UREA NITROGEN 9 mg/dl (7-20); CALCIUM 8.6 mg/dl (8.4-10.2); CARBON DIOXIDE 24 mmol/L (21-31); CHLORIDE 104 mmol/L (97-110); CREATININE 0.81 mg/dl (0.61-1.24); GLUCOSE 93 mg/dl (70-220); POTASSIUM 4.8 mmol/L (3.5-5.1); SODIUM 139 mmol/L (135-144)
[2018-05-27] MEDS: FINASTERIDE 5 MG TAB PO (08:22)
[2018-05-27] MEDS: GABAPENTIN 100 MG CAP PO ×3 (08:23→21:18)
[2018-05-27] MEDS: QUETIAPINE 25 MG TAB PO ×3 (08:23→21:18)
[2018-05-27] MEDS: AMLODIPINE 5 MG TAB PO (08:23)
[2018-05-27] MEDS: BALSAM PERU/CASTOR OIL 60 GM TUBE TOP ×2 (08:24→21:20)
[2018-05-27] MEDS: APIXABAN 5 MG TABLET PO ×2 (08:24→21:18)
[2018-05-27] MEDS: MULTIVITAMINS/MINERALS TAB PO (08:24)
[2018-05-27] MEDS: PEG/ELECTROLYTES 4L BTL PO (16:27)
[2018-05-27] MEDS: MELATONIN 3 MG TABLET PO (21:00)
[2018-05-28] MEDS: D5W-0.45 NACL + KCL 20 MEQ 1,000 ML IV ×3 (00:05→17:03)
[2018-05-28] MEDS: metroNIDAZOLE 500 MG TAB PO ×3 (05:24→22:21)
[2018-05-28] MEDS: PANTOPRAZOLE 40 MG INJ IV (05:29)
[2018-05-28] MEDS: morphine 2 MG INJ IV (07:54)
[2018-05-28] MEDS: APIXABAN 5 MG TABLET PO ×2 (08:58→22:20)
[2018-05-28] MEDS: MULTIVITAMINS/MINERALS TAB PO (08:59)
[2018-05-28] MEDS: AMLODIPINE 5 MG TAB PO (08:59)
[2018-05-28] MEDS: QUETIAPINE 25 MG TAB PO ×2 (08:59→22:23)
[2018-05-28] MEDS: GABAPENTIN 100 MG CAP PO ×3 (08:59→22:20)
[2018-05-28] MEDS: FINASTERIDE 5 MG TAB PO (08:59)
[2018-05-28 09:07] LABS: ADD MAN DIFF? NO
[2018-05-28 09:14] LABS: BASOPHILS % 0.2 % (0.0-2.0); EOSINOPHILS # 0.2 10^3/ul (0.0-0.5); EOSINOPHILS % 2.9 % (0.0-7.0); HEMATOCRIT 35.1 % (42.0-52.0); HEMOGLOBIN 11.3 g/dl (14.0-18.0); LYMPHOCYTES # 1.3 10^3/ul (0.8-2.9); LYMPHOCYTES % 16.1 % (15.0-51.0); MEAN CORPUSCULAR HEMOGLOBIN 27.6 pg (29.0-33.0); MEAN CORPUSCULAR HGB CONC 32.2 g/dl (32.0-37.0); MEAN CORPUSCULAR VOLUME 85.6 fl (82.0-101.0); MEAN PLATELET VOLUME 8.4 fl (7.4-10.4); MONOCYTES % 11.7 % (0.0-11.0); NEUTROPHIL # 5.7 10^3/ul (1.6-7.5); NEUTROPHILS % 68.9 % (39.0-77.0); PLATELET COUNT 272 10^3/UL (140-415); RED CELL DISTRIBUTION WIDTH 14.5 % (11.5-14.5)
[2018-05-28 09:14] LABS: WHITE BLOOD COUNT 8.3 10^3/ul (4.8-10.8)
[2018-05-28 09:38] LABS: ANION GAP 7 (5-13); BLOOD UREA NITROGEN 9 mg/dl (7-20); CALCIUM 8.4 mg/dl (8.4-10.2); CARBON DIOXIDE 24 mmol/L (21-31); CHLORIDE 107 mmol/L (97-110); CREATININE 0.78 mg/dl (0.61-1.24); GLUCOSE 103 mg/dl (70-220); POTASSIUM 4.4 mmol/L (3.5-5.1); SODIUM 138 mmol/L (135-144)
[2018-05-28] MEDS: BALSAM PERU/CASTOR OIL 60 GM TUBE TOP ×2 (09:39→22:21)
[2018-05-28 10:10] LABS: INR 1.15; PROTIME 14.9 Sec (11.9-14.9); PT RATIO 1.2
[2018-05-28] MEDS: MELATONIN 3 MG TABLET PO (22:20)
[2018-05-29] MEDS: D5W-0.45 NACL + KCL 20 MEQ 1,000 ML IV ×3 (00:27→18:33)
[2018-05-29] MEDS ORDERED: PANTOPRAZOLE 40 MG INJ (05:01)
[2018-05-29] MEDS: OXYCODONE/ACETAMINOPHEN (10/325) TAB PO ×3 (05:42→21:19)
[2018-05-29] MEDS: metroNIDAZOLE 500 MG TAB PO ×3 (05:42→21:13)
[2018-05-29] MEDS: PANTOPRAZOLE (EC) 40 MG TAB PO (05:45)
[2018-05-29] MEDS: QUETIAPINE 25 MG TAB PO ×2 (09:00→21:00)
[2018-05-29] MEDS: APIXABAN 5 MG TABLET PO ×2 (09:13→21:13)
[2018-05-29] MEDS: GABAPENTIN 100 MG CAP PO ×3 (09:14→21:13)
[2018-05-29] MEDS: MULTIVITAMINS/MINERALS TAB PO (09:15)
[2018-05-29] MEDS: AMLODIPINE 5 MG TAB PO (09:15)
[2018-05-29] MEDS: FINASTERIDE 5 MG TAB PO (09:15)
[2018-05-29] MEDS: BALSAM PERU/CASTOR OIL 60 GM TUBE TOP ×2 (17:46→21:14)
[2018-05-29] MEDS: MELATONIN 3 MG TABLET PO ×2 (21:00→21:13)
[2018-05-30] MEDS: MELATONIN 3 MG TABLET PO (01:58)
[2018-05-30] MEDS: D5W-0.45 NACL + KCL 20 MEQ 1,000 ML IV ×4 (02:47→15:27)
[2018-05-30] MEDS: PANTOPRAZOLE (EC) 40 MG TAB PO (05:42)
[2018-05-30] MEDS: metroNIDAZOLE 500 MG TAB PO ×3 (05:43→22:05)
[2018-05-30] MEDS: OXYCODONE/ACETAMINOPHEN (10/325) TAB PO ×3 (05:43→19:50)
[2018-05-30] MEDS: QUETIAPINE 25 MG TAB PO ×3 (09:00→20:45)
[2018-05-30] MEDS: APIXABAN 5 MG TABLET PO ×2 (09:34→20:43)
[2018-05-30] MEDS: AMLODIPINE 5 MG TAB PO (09:34)
[2018-05-30] MEDS: FINASTERIDE 5 MG TAB PO (09:34)
[2018-05-30] MEDS: BALSAM PERU/CASTOR OIL 60 GM TUBE TOP ×2 (09:34→20:48)
[2018-05-30] MEDS: MULTIVITAMINS/MINERALS TAB PO (09:34)
[2018-05-30] MEDS: GABAPENTIN 100 MG CAP PO ×3 (09:34→20:44)
[2018-05-30 16:17] LABS: CARCINOEMBRYONIC ANTIGEN 4.5 ng/ml (0.0-5.0)
[2018-05-31] MEDS: MELATONIN 3 MG TABLET PO ×2 (00:57→20:40)
[2018-05-31] MEDS: OXYCODONE/ACETAMINOPHEN (10/325) TAB PO ×5 (00:57→23:06)
[2018-05-31] MEDS: D5W-0.45 NACL + KCL 20 MEQ 1,000 ML IV ×2 (01:02→11:09)
[2018-05-31] MEDS: metroNIDAZOLE 500 MG TAB PO (06:11)
[2018-05-31] MEDS: PANTOPRAZOLE (EC) 40 MG TAB PO (06:11)
[2018-05-31] MEDS: QUETIAPINE 25 MG TAB PO ×3 (08:27→20:40)
[2018-05-31] MEDS: GABAPENTIN 100 MG CAP PO ×3 (08:27→20:40)
[2018-05-31] MEDS: FINASTERIDE 5 MG TAB PO (08:27)
[2018-05-31] MEDS: APIXABAN 5 MG TABLET PO (08:27)
[2018-05-31] MEDS: MULTIVITAMINS/MINERALS TAB PO (08:27)
[2018-05-31] MEDS: BALSAM PERU/CASTOR OIL 60 GM TUBE TOP ×2 (08:35→20:45)
[2018-05-31] MEDS: AMLODIPINE 5 MG TAB PO (08:35)
[2018-06-01] MEDS: OXYCODONE/ACETAMINOPHEN (10/325) TAB PO ×5 (01:31→20:32)
[2018-06-01] MEDS: PANTOPRAZOLE (EC) 40 MG TAB PO (05:35)
[2018-06-01] MEDS: D5W-0.45 NACL + KCL 20 MEQ 1,000 ML IV ×3 (05:44→18:34)
[2018-06-01 07:25] LABS: ADD MAN DIFF? NO
[2018-06-01 07:30] LABS: BASOPHILS % 0.5 % (0.0-2.0); EOSINOPHILS # 0.3 10^3/ul (0.0-0.5); EOSINOPHILS % 4.3 % (0.0-7.0); HEMATOCRIT 36.8 % (42.0-52.0); HEMOGLOBIN 11.2 g/dl (14.0-18.0); LYMPHOCYTES # 1.7 10^3/ul (0.8-2.9); LYMPHOCYTES % 28.6 % (15.0-51.0); MEAN CORPUSCULAR HEMOGLOBIN 26.7 pg (29.0-33.0); MEAN CORPUSCULAR HGB CONC 30.4 g/dl (32.0-37.0); MEAN CORPUSCULAR VOLUME 87.8 fl (82.0-101.0); MEAN PLATELET VOLUME 8.5 fl (7.4-10.4); MONOCYTE # 0.6 10^3/ul (0.3-0.9); MONOCYTES % 9.9 % (0.0-11.0); NEUTROPHIL # 3.4 10^3/ul (1.6-7.5); PLATELET COUNT 304 10^3/UL (140-415); RED BLOOD COUNT 4.19 10^6/ul (4.70-6.10)
[2018-06-01] MEDS: MEPERIDINE 50 MG INJ (07:34)
[2018-06-01] MEDS: PROPOFOL 40 ML (07:35)
[2018-06-01] MEDS: LIDOCAINE 100 MG SYRINGE (07:35)
[2018-06-01 08:00] LABS: ANION GAP 8 (5-13); BLOOD UREA NITROGEN 13 mg/dl (7-20); CALCIUM 8.7 mg/dl (8.4-10.2); CARBON DIOXIDE 27 mmol/L (21-31); CHLORIDE 105 mmol/L (97-110); CREATININE 0.88 mg/dl (0.61-1.24); GLUCOSE 85 mg/dl (70-220); POTASSIUM 4.9 mmol/L (3.5-5.1); SODIUM 140 mmol/L (135-144)
[2018-06-01] MEDS: AMLODIPINE 5 MG TAB PO (08:18)
[2018-06-01] MEDS: MULTIVITAMINS/MINERALS TAB PO (08:18)
[2018-06-01] MEDS: FINASTERIDE 5 MG TAB PO (08:18)
[2018-06-01] MEDS: GABAPENTIN 100 MG CAP PO ×3 (08:19→20:25)
[2018-06-01] MEDS: ENOXAPARIN 30 MG/0.3 ML SYG SC (08:20)
[2018-06-01] MEDS: QUETIAPINE 25 MG TAB PO ×2 (08:25→20:25)
[2018-06-01] MEDS: BALSAM PERU/CASTOR OIL 60 GM TUBE TOP ×2 (09:00→20:25)
[2018-06-01] MEDS: MELATONIN 3 MG TABLET PO (20:25)
[2018-06-02] MEDS: OXYCODONE/ACETAMINOPHEN (10/325) TAB PO ×4 (00:29→20:02)
[2018-06-02] MEDS: MELATONIN 3 MG TABLET PO (00:29)
[2018-06-02] MEDS: D5W-0.45 NACL + KCL 20 MEQ 1,000 ML IV ×5 (00:47→22:49)
[2018-06-02] MEDS: PANTOPRAZOLE (EC) 40 MG TAB PO (05:35)
[2018-06-02] MEDS: GABAPENTIN 100 MG CAP PO ×3 (08:52→20:06)
[2018-06-02] MEDS: MULTIVITAMINS/MINERALS TAB PO (08:52)
[2018-06-02] MEDS: AMLODIPINE 5 MG TAB PO (08:52)
[2018-06-02] MEDS: FINASTERIDE 5 MG TAB PO (08:52)
[2018-06-02] MEDS: ENOXAPARIN 30 MG/0.3 ML SYG SC (08:53)
[2018-06-02] MEDS: QUETIAPINE 25 MG TAB PO ×2 (08:56→20:06)
[2018-06-02] MEDS: BALSAM PERU/CASTOR OIL 60 GM TUBE TOP ×2 (08:57→21:00)
[2018-06-02] MEDS: APIXABAN 5 MG TABLET PO (20:06)
[2018-06-03] MEDS: OXYCODONE/ACETAMINOPHEN (10/325) TAB PO ×5 (00:01→20:17)
[2018-06-03] MEDS: MELATONIN 3 MG TABLET PO (01:03)
[2018-06-03] MEDS: PANTOPRAZOLE (EC) 40 MG TAB PO (06:37)
[2018-06-03] MEDS: QUETIAPINE 25 MG TAB PO ×2 (09:00→20:17)
[2018-06-03] MEDS: AMLODIPINE 5 MG TAB PO (09:12)
[2018-06-03] MEDS: GABAPENTIN 100 MG CAP PO ×3 (09:12→20:16)
[2018-06-03] MEDS: FINASTERIDE 5 MG TAB PO (09:12)
[2018-06-03] MEDS: MULTIVITAMINS/MINERALS TAB PO (09:13)
[2018-06-03] MEDS: APIXABAN 5 MG TABLET PO ×2 (09:13→20:17)
[2018-06-03] MEDS: BALSAM PERU/CASTOR OIL 60 GM TUBE TOP ×2 (09:14→20:17)
[2018-06-03] MEDS: D5W-0.45 NACL + KCL 20 MEQ 1,000 ML IV ×2 (09:14→20:21)
[2018-06-03 11:18] LABS: ADD MAN DIFF? NO
[2018-06-03 11:29] LABS: BASOPHILS % 0.4 % (0.0-2.0); EOSINOPHILS # 0.2 10^3/ul (0.0-0.5); EOSINOPHILS % 2.3 % (0.0-7.0); HEMATOCRIT 33.8 % (42.0-52.0); HEMOGLOBIN 10.4 g/dl (14.0-18.0); LYMPHOCYTES # 1.4 10^3/ul (0.8-2.9); MEAN CORPUSCULAR HEMOGLOBIN 27.2 pg (29.0-33.0); MEAN CORPUSCULAR HGB CONC 30.8 g/dl (32.0-37.0); MEAN CORPUSCULAR VOLUME 88.3 fl (82.0-101.0); MEAN PLATELET VOLUME 8.2 fl (7.4-10.4); MONOCYTE # 0.7 10^3/ul (0.3-0.9); MONOCYTES % 9.8 % (0.0-11.0); NEUTROPHILS % 68.1 % (39.0-77.0); PLATELET COUNT 332 10^3/UL (140-415); RED BLOOD COUNT 3.83 10^6/ul (4.70-6.10)
[2018-06-03 11:29] LABS: WHITE BLOOD COUNT 7.3 10^3/ul (4.8-10.8)
[2018-06-03 11:38] LABS: ANION GAP 7 (5-13); BLOOD UREA NITROGEN 13 mg/dl (7-20); CALCIUM 8.5 mg/dl (8.4-10.2); CARBON DIOXIDE 26 mmol/L (21-31); CHLORIDE 107 mmol/L (97-110); CREATININE 0.86 mg/dl (0.61-1.24); GLUCOSE 111 mg/dl (70-220); POTASSIUM 4.6 mmol/L (3.5-5.1); SODIUM 140 mmol/L (135-144)
[2018-06-03] MEDS ORDERED: LORAZEPAM 2 MG INJ IV (16:00)
[2018-06-04] MEDS: OXYCODONE/ACETAMINOPHEN (10/325) TAB PO ×6 (01:16→23:44)
[2018-06-04] MEDS: MELATONIN 3 MG TABLET PO ×2 (02:48→20:34)
[2018-06-04] MEDS: PANTOPRAZOLE (EC) 40 MG TAB PO (06:20)
[2018-06-04] MEDS: D5W-0.45 NACL + KCL 20 MEQ 1,000 ML IV ×2 (06:20→16:39)
[2018-06-04] MEDS: AMLODIPINE 5 MG TAB PO (08:35)
[2018-06-04] MEDS: GABAPENTIN 100 MG CAP PO ×3 (08:35→20:34)
[2018-06-04] MEDS: FINASTERIDE 5 MG TAB PO (08:35)
[2018-06-04] MEDS: APIXABAN 5 MG TABLET PO ×2 (08:35→20:34)
[2018-06-04] MEDS: MULTIVITAMINS/MINERALS TAB PO (08:35)
[2018-06-04] MEDS: QUETIAPINE 25 MG TAB PO ×3 (08:35→21:00)
[2018-06-04] MEDS: BALSAM PERU/CASTOR OIL 60 GM TUBE TOP ×2 (08:36→20:34)
[2018-06-04] MEDS: morphine 2 MG INJ IV (12:35)
[2018-06-05] MEDS: D5W-0.45 NACL + KCL 20 MEQ 1,000 ML IV ×2 (02:56→12:20)
[2018-06-05] MEDS: OXYCODONE/ACETAMINOPHEN (10/325) TAB PO ×4 (05:02→18:35)
[2018-06-05] MEDS: PANTOPRAZOLE (EC) 40 MG TAB PO (06:01)
[2018-06-05] MEDS: GABAPENTIN 100 MG CAP PO ×2 (08:10→12:18)
[2018-06-05] MEDS: MULTIVITAMINS/MINERALS TAB PO (08:10)
[2018-06-05] MEDS: FINASTERIDE 5 MG TAB PO (08:10)
[2018-06-05] MEDS: APIXABAN 5 MG TABLET PO (08:10)
[2018-06-05] MEDS: AMLODIPINE 5 MG TAB PO (08:11)
[2018-06-05] MEDS: QUETIAPINE 25 MG TAB PO (08:13)
[2018-06-05] MEDS: BALSAM PERU/CASTOR OIL 60 GM TUBE TOP (08:15)
== END 2018-06-05 20:43 | disposition home or self-care (01) | DRG 392 ==
LOC: 5EC 05-30 01:20 → E/R 11:26 → 2NE 13:53
PROC: 0DBL8ZX Excision of Transverse Colon, Via Natural or Artificial Opening Endoscopic, Diagnostic (ICD-10-PCS; principal; 2018-05-28 11:25)
DX: A09 Infectious gastroenteritis and colitis, unspecified (principal); I50.30 Unspecified diastolic (congestive) heart failure; C18.3 Malignant neoplasm of hepatic flexure; I48.0 Paroxysmal atrial fibrillation; K40.20 Bilateral inguinal hernia, without obstruction or gangrene, not specified as recurrent; K59.00 Constipation, unspecified; E86.0 Dehydration; I10 Essential (primary) hypertension; N40.0 Benign prostatic hyperplasia without lower urinary tract symptoms; F22 Delusional disorders; Z85.038 Personal history of other malignant neoplasm of large intestine; I11.0 Hypertensive heart disease with heart failure; D64.9 Anemia, unspecified; Z74.01 Bed confinement status; M19.90 Unspecified osteoarthritis, unspecified site; I25.10 Atherosclerotic heart disease of native coronary artery without angina pectoris
CPT/HCPCS: 36415; 74018; 74176; 80048; 80053; 80061; 81001; 82378; 83605; 83690; 83735; 84439; 84443; 84484; 85025; 85610; 87040; 87045; 87075; 87081; 87086; 88305; 93005; 93306; 97110; 97116; 97162; 97530; 99285-25

== ENCOUNTER 2018-06-25 17:21 | Observation (INO) | payer MEDICARE, OTHER ==
[2018-06-25] MEDS: NITROGLYCERIN 2% 1 GM OINT PKT TD (18:09)
[2018-06-25] MEDS: ASPIRIN 81 MG TAB PO (18:09)
[2018-06-25 18:24] LABS: ADD MAN DIFF? NO
[2018-06-25 18:26] LABS: WHITE BLOOD COUNT 7.2 10^3/ul (4.8-10.8)
[2018-06-25 18:26] LABS: BASOPHILS % 0.3 % (0.0-2.0); EOSINOPHILS # 0.1 10^3/ul (0.0-0.5); EOSINOPHILS % 1.2 % (0.0-7.0); HEMATOCRIT 34.7 % (42.0-52.0); HEMOGLOBIN 10.9 g/dl (14.0-18.0); LYMPHOCYTES # 1.7 10^3/ul (0.8-2.9); LYMPHOCYTES % 24.1 % (15.0-51.0); MEAN CORPUSCULAR HEMOGLOBIN 27.2 pg (29.0-33.0); MEAN CORPUSCULAR HGB CONC 31.4 g/dl (32.0-37.0); MEAN CORPUSCULAR VOLUME 86.5 fl (82.0-101.0); MEAN PLATELET VOLUME 8.7 fl (7.4-10.4); MONOCYTE # 0.8 10^3/ul (0.3-0.9); MONOCYTES % 11.2 % (0.0-11.0); NEUTROPHIL # 4.5 10^3/ul (1.6-7.5); NEUTROPHILS % 62.9 % (39.0-77.0); PLATELET COUNT 346 10^3/UL (140-415); RED BLOOD COUNT 4.01 10^6/ul (4.70-6.10); RED CELL DISTRIBUTION WIDTH 14.3 % (11.5-14.5)
[2018-06-25 18:42] LABS: ALANINE AMINOTRANSFERASE 19 IU/L (13-69); ALBUMIN 3.6 g/dl (3.3-4.9); ALKALINE PHOSPHATASE 122 IU/L (42-121); ANION GAP 10 (5-13); ASPARTATE AMINO TRANSFERASE 20 IU/L (15-46); BILIRUBIN,INDIRECT 0.2 mg/dl (0-1.1); BILIRUBIN,TOTAL 0.2 mg/dl (0.2-1.3); BLOOD UREA NITROGEN 21 mg/dl (7-20); CALCIUM 8.8 mg/dl (8.4-10.2); CARBON DIOXIDE 29 mmol/L (21-31); CHLORIDE 104 mmol/L (97-110); CREATININE 0.92 mg/dl (0.61-1.24); GLUCOSE 105 mg/dl (70-220); SODIUM 143 mmol/L (135-144); TOTAL PROTEIN 6.6 g/dl (6.1-8.1)
[2018-06-25 18:54] LABS: TROPONIN-I < 0.012 ng/ml (0.000-0.120)
[2018-06-25] MEDS: ONDANSETRON 4 MG INJ IV (19:20)
[2018-06-25] MEDS: morphine 4 MG/ML VIAL IV (19:21)
[2018-06-25] MEDS ORDERED: ONDANSETRON 4 MG INJ IV ×2 (20:00→20:30)
[2018-06-25] MEDS ORDERED: ACETAMINOPHEN 325 MG TAB PO ×2 (20:00→20:30)
[2018-06-25] MEDS ORDERED: morphine 2 MG INJ IV (20:30)
[2018-06-25] MEDS ORDERED: NACL 0.9% 3 ML SYG IV (20:30)
[2018-06-25] MEDS: FAMOTIDINE 20 MG INJ IV (20:49)
[2018-06-25 20:56] LABS: CREATINE KINASE < 20 IU/L (23-200)
[2018-06-25 21:07] LABS: TROPONIN-I < 0.012 ng/ml (0.000-0.120)
[2018-06-25 21:09] LABS: CK-MB < 0.20 ng/ml (0.0-2.4)
[2018-06-25] MEDS: morphine SULFATE/PF (2 MG/2 ML) SYG IV (22:34)
[2018-06-26 03:25] LABS: CREATINE KINASE < 20 IU/L (23-200)
[2018-06-26 03:34] LABS: CK-MB < 0.22 ng/ml (0.0-2.4); TROPONIN-I < 0.012 ng/ml (0.000-0.120)
[2018-06-26 05:27] LABS: ADD MAN DIFF? NO
[2018-06-26 05:34] LABS: WHITE BLOOD COUNT 6.9 10^3/ul (4.8-10.8)
[2018-06-26 05:34] LABS: BASOPHILS % 0.4 % (0.0-2.0); EOSINOPHILS # 0.1 10^3/ul (0.0-0.5); EOSINOPHILS % 1.9 % (0.0-7.0); HEMATOCRIT 31.5 % (42.0-52.0); HEMOGLOBIN 9.6 g/dl (14.0-18.0); LYMPHOCYTES # 1.4 10^3/ul (0.8-2.9); LYMPHOCYTES % 20.1 % (15.0-51.0); MEAN CORPUSCULAR HEMOGLOBIN 26.7 pg (29.0-33.0); MEAN CORPUSCULAR HGB CONC 30.5 g/dl (32.0-37.0); MEAN CORPUSCULAR VOLUME 87.5 fl (82.0-101.0); MEAN PLATELET VOLUME 8.7 fl (7.4-10.4); MONOCYTE # 0.8 10^3/ul (0.3-0.9); MONOCYTES % 11.6 % (0.0-11.0); NEUTROPHIL # 4.5 10^3/ul (1.6-7.5); NEUTROPHILS % 65.7 % (39.0-77.0); PLATELET COUNT 309 10^3/UL (140-415); RED CELL DISTRIBUTION WIDTH 14.3 % (11.5-14.5)
[2018-06-26 05:49] LABS: HEMOGLOBIN A1C 5.4 % (0-5.9)
[2018-06-26 05:59] LABS: ALANINE AMINOTRANSFERASE 15 IU/L (13-69); ALBUMIN/GLOBULIN RATIO 1.07; ALKALINE PHOSPHATASE 103 IU/L (42-121); ANION GAP 6 (5-13); ASPARTATE AMINO TRANSFERASE 21 IU/L (15-46); BILIRUBIN,INDIRECT 0.2 mg/dl (0-1.1); BILIRUBIN,TOTAL 0.2 mg/dl (0.2-1.3); BLOOD UREA NITROGEN 20 mg/dl (7-20); CALCIUM 8.3 mg/dl (8.4-10.2); CARBON DIOXIDE 28 mmol/L (21-31); CHLORIDE 106 mmol/L (97-110); CREATININE 0.92 mg/dl (0.61-1.24); GLUCOSE 102 mg/dl (70-220); POTASSIUM 4.1 mmol/L (3.5-5.1); SODIUM 140 mmol/L (135-144); TOTAL PROTEIN 5.8 g/dl (6.1-8.1)
[2018-06-26] MEDS ORDERED: DOCUSATE SODIUM 100 MG CAP PO (06:00)
[2018-06-26] MEDS ORDERED: LOPERAMIDE 2 MG CAP PO (06:00)
[2018-06-26] MEDS ORDERED: GUAIFENESIN/DM 5ML CUP PO (06:00)
[2018-06-26] MEDS ORDERED: ACETAMINOPHEN 325 MG TAB PO (06:00)
[2018-06-26] MEDS ORDERED: OXYCODONE/ACETAMINOPHEN (10/325) TAB PO (06:00)
[2018-06-26] MEDS ORDERED: NITROGLYCERIN (SL) 0.4 MG TAB SL (06:00)
[2018-06-26] MEDS: morphine SULFATE/PF (2 MG/2 ML) SYG IV (06:38)
[2018-06-26] MEDS: QUETIAPINE 25 MG TAB PO ×3 (09:00→21:00)
[2018-06-26] MEDS: FINASTERIDE 5 MG TAB PO (09:03)
[2018-06-26] MEDS: MULTIVITAMINS/MINERALS TAB PO (09:03)
[2018-06-26] MEDS: ASPIRIN 81 MG TAB PO (09:03)
[2018-06-26] MEDS: AMLODIPINE 5 MG TAB PO (09:04)
[2018-06-26] MEDS: GABAPENTIN 100 MG CAP PO ×3 (09:04→21:44)
[2018-06-26] MEDS: APIXABAN 5 MG TABLET PO ×2 (09:04→21:44)
[2018-06-26] MEDS: ENOXAPARIN 30 MG/0.3 ML SYG SC (09:06)
[2018-06-26] MEDS: FAMOTIDINE 20 MG INJ IV ×2 (09:09→21:44)
[2018-06-26] MEDS: OXYCODONE/ACETAMINOPHEN (10/325) TAB PO ×2 (11:46→23:15)
[2018-06-26] MEDS: MELATONIN 3 MG TABLET PO (21:44)
[2018-06-27] MEDS: OXYCODONE/ACETAMINOPHEN (10/325) TAB PO ×3 (04:27→14:46)
[2018-06-27] MEDS: AMLODIPINE 5 MG TAB PO (08:04)
[2018-06-27] MEDS: MULTIVITAMINS/MINERALS TAB PO (08:04)
[2018-06-27] MEDS: GABAPENTIN 100 MG CAP PO ×2 (08:05→13:53)
[2018-06-27] MEDS: QUETIAPINE 25 MG TAB PO (08:05)
[2018-06-27] MEDS: FAMOTIDINE 20 MG INJ IV (08:05)
[2018-06-27] MEDS: FINASTERIDE 5 MG TAB PO (08:05)
[2018-06-27] MEDS: APIXABAN 5 MG TABLET PO (08:05)
[2018-06-27] MEDS: ASPIRIN 81 MG TAB PO (08:05)
[2018-06-27] MEDS: ENOXAPARIN 30 MG/0.3 ML SYG SC (08:30)
[2018-06-27] MEDS ORDERED: morphine LIQ (10 MG/5 ML) CUP PO (16:30)
[2018-06-27] MEDS ORDERED: FAMOTIDINE 20 MG TAB PO (21:00)
== END 2018-06-27 18:55 ==
LOC: E/R 17:21 → 6WM 19:39
DX: R07.89 Other chest pain (principal); I48.0 Paroxysmal atrial fibrillation; Z79.01 Long term (current) use of anticoagulants; I10 Essential (primary) hypertension; N40.0 Benign prostatic hyperplasia without lower urinary tract symptoms; F22 Delusional disorders; C18.9 Malignant neoplasm of colon, unspecified
CPT/HCPCS: 36415; 71045; 80053; 82550; 82553; 83036; 84484; 85025; 87081; 93005; 93306; 96374; 96375; 99285-25; G0378

== ENCOUNTER 2018-10-12 20:16 | Emergency (ER) | payer MEDICARE, OTHER | END 2018-10-12 22:45 | disposition home or self-care (01) | LOC: E/R 20:16 | DX: K40.91 Unilateral inguinal hernia, without obstruction or gangrene, recurrent (principal); I50.9 Heart failure, unspecified; I10 Essential (primary) hypertension; Z79.01 Long term (current) use of anticoagulants | CPT/HCPCS: 99282 ==

== ENCOUNTER 2018-11-16 16:48 | Inpatient (IN) | payer MEDICARE, OTHER ==
[2018-11-16] MEDS: morphine 4 MG/ML VIAL IV (17:21)
[2018-11-16] MEDS: ONDANSETRON 4 MG INJ IV (17:21)
[2018-11-16 17:24] LABS: ADD MAN DIFF? NO
[2018-11-16 17:25] LABS: BASOPHILS % 0.7 % (0.0-2.0); EOSINOPHILS # 0.1 10^3/ul (0.0-0.5); HEMATOCRIT 33.3 % (42.0-52.0); HEMOGLOBIN 9.9 g/dl (14.0-18.0); LYMPHOCYTES # 1.1 10^3/ul (0.8-2.9); LYMPHOCYTES % 17.9 % (15.0-51.0); MEAN CORPUSCULAR HGB CONC 29.7 g/dl (32.0-37.0); MEAN CORPUSCULAR VOLUME 80.6 fl (82.0-101.0); MEAN PLATELET VOLUME 7.9 fl (7.4-10.4); MONOCYTE # 0.7 10^3/ul (0.3-0.9); MONOCYTES % 11.5 % (0.0-11.0); NEUTROPHILS % 67.6 % (39.0-77.0); PLATELET COUNT 325 10^3/UL (140-415); RED BLOOD COUNT 4.13 10^6/ul (4.70-6.10); RED CELL DISTRIBUTION WIDTH 15.9 % (11.5-14.5)
[2018-11-16 17:25] LABS: WHITE BLOOD COUNT 5.9 10^3/ul (4.8-10.8)
[2018-11-16] MEDS ORDERED: ACETAMINOPHEN 325 MG TAB PO (17:30)
[2018-11-16] MEDS ORDERED: ONDANSETRON 4 MG INJ IV (17:30)
[2018-11-16 17:47] LABS: ALANINE AMINOTRANSFERASE 20 IU/L (13-69); ALBUMIN 3.5 g/dl (3.3-4.9); ALBUMIN/GLOBULIN RATIO 1.16; ALKALINE PHOSPHATASE 116 IU/L (42-121); ANION GAP 8 (5-13); ASPARTATE AMINO TRANSFERASE 19 IU/L (15-46); BILIRUBIN,INDIRECT 0.4 mg/dl (0-1.1); BILIRUBIN,TOTAL 0.4 mg/dl (0.2-1.3); BLOOD UREA NITROGEN 21 mg/dl (7-20); CALCIUM 8.5 mg/dl (8.4-10.2); CARBON DIOXIDE 26 mmol/L (21-31); CHLORIDE 106 mmol/L (97-110); CREATININE 0.67 mg/dl (0.61-1.24); GLUCOSE 93 mg/dl (70-220); LIPASE 23 U/L (23-300); POTASSIUM 3.8 mmol/L (3.5-5.1); SODIUM 140 mmol/L (135-144); TOTAL PROTEIN 6.5 g/dl (6.1-8.1)
[2018-11-16 17:57] LABS: TROPONIN-I < 0.012 ng/ml (0.000-0.120)
[2018-11-16] MEDS: HYDROmorphONE 2 MG/ML SYG IV (19:36)
[2018-11-16] MEDS: PIPER-TAZO 3.375 GM IV (PMX) 100 ML IVPB (19:36)
[2018-11-16] MEDS ORDERED: ZOLPIDEM 5 MG TAB PO (21:30)
[2018-11-16] MEDS ORDERED: LOPERAMIDE 2 MG CAP PO (21:30)
[2018-11-16] MEDS ORDERED: NITROGLYCERIN (SL) 0.4 MG TAB SL (21:30)
[2018-11-16] MEDS: D5W-0.45 NACL + KCL 20 MEQ 1,000 ML IV (22:59)
[2018-11-16] MEDS: LACTULOSE 30ML CUP PO (23:00)
[2018-11-17] MEDS: LACTULOSE 30ML CUP PO ×4 (04:27→21:30)
[2018-11-17] MEDS: OXYCODONE/ACETAMINOPHEN (10/325) TAB PO ×2 (04:53→08:53)
[2018-11-17 07:51] LABS: ADD MAN DIFF? NO
[2018-11-17 07:57] LABS: BASOPHILS % 0.2 % (0.0-2.0); EOSINOPHILS % 0.2 % (0.0-7.0); HEMATOCRIT 34.9 % (42.0-52.0); HEMOGLOBIN 10.4 g/dl (14.0-18.0); LYMPHOCYTES # 0.8 10^3/ul (0.8-2.9); LYMPHOCYTES % 9.8 % (15.0-51.0); MEAN CORPUSCULAR HGB CONC 29.8 g/dl (32.0-37.0); MEAN CORPUSCULAR VOLUME 80.4 fl (82.0-101.0); MEAN PLATELET VOLUME 8.2 fl (7.4-10.4); MONOCYTE # 0.7 10^3/ul (0.3-0.9); MONOCYTES % 8.2 % (0.0-11.0); NEUTROPHIL # 6.5 10^3/ul (1.6-7.5); PLATELET COUNT 323 10^3/UL (140-415); RED BLOOD COUNT 4.34 10^6/ul (4.70-6.10); RED CELL DISTRIBUTION WIDTH 16.1 % (11.5-14.5)
[2018-11-17 08:16] LABS: ANION GAP 8 (5-13); BLOOD UREA NITROGEN 24 mg/dl (7-20); CALCIUM 8.6 mg/dl (8.4-10.2); CARBON DIOXIDE 25 mmol/L (21-31); CHLORIDE 108 mmol/L (97-110); GLUCOSE 129 mg/dl (70-220); MAGNESIUM 2.4 mg/dl (1.7-2.5); POTASSIUM 4.8 mmol/L (3.5-5.1); SODIUM 141 mmol/L (135-144)
[2018-11-17] MEDS: GABAPENTIN 100 MG CAP PO ×3 (09:00→21:00)
[2018-11-17] MEDS: NYSTATIN 15 GM POWDER BTL TOP ×2 (09:00→21:29)
[2018-11-17] MEDS: ASPIRIN (EC) 81 MG TAB PO ×2 (09:00→18:50)
[2018-11-17] MEDS ORDERED: HYDROmorphONE 0.5 MG/0.5 ML SYG IV (09:00)
[2018-11-17] MEDS: FINASTERIDE 5 MG TAB PO ×2 (09:00→18:50)
[2018-11-17] MEDS: FERROUS SULFATE (EC) 325 MG TAB PO (09:00)
[2018-11-17] MEDS: AMLODIPINE 5 MG TAB PO ×2 (09:00→18:50)
[2018-11-17] MEDS: ONDANSETRON 4 MG INJ IV ×2 (09:21→18:55)
[2018-11-17] MEDS: morphine 4 MG/ML VIAL IV ×2 (10:30→21:26)
[2018-11-17 10:35] LABS: ADD UMIC YES; UR ASCORBIC ACID 40 mg/dL (NEGATIVE); UR BACTERIA MODERATE /HPF (NONE SEEN); UR BILIRUBIN (Dip) NEGATIVE (NEGATIVE); UR BLOOD (Dip) 1+ mg/dL (NEGATIVE); UR CLARITY CLOUDY (CLEAR); UR COLOR YELLOW (YELLOW); UR GLUCOSE (Dip) NEGATIVE (NEGATIVE); UR KETONES (Dip) TRACE mg/dL (NEGATIVE); UR LEUKOCYTE ESTERASE (Dip) 3+ Leu/ul (NEGATIVE); UR NITRITE (Dip) POSITIVE (NEGATIVE); UR RBC 42 /HPF (0-5); UR SPECIFIC GRAVITY (Dip) 1.024 (1.003-1.030); UR SQUAMOUS EPITHELIAL CELL FEW /HPF (FEW); UR TOTAL PROTEIN (Dip) NEGATIVE (NEGATIVE); UR UROBILINOGEN (Dip) NEGATIVE (NEGATIVE); UR WBC > 182 /HPF (0-5)
[2018-11-17] MEDS: D5W-0.45 NACL + KCL 20 MEQ 1,000 ML IV (18:46)
[2018-11-17] MEDS: POLYETHYLENE GLYCOL 17 GM PACKET GTB (18:55)
[2018-11-18] MEDS: morphine 4 MG/ML VIAL IV ×3 (02:20→21:14)
[2018-11-18] MEDS: LACTULOSE 30ML CUP PO ×4 (03:30→20:46)
[2018-11-18] MEDS: D5W-0.45 NACL + KCL 20 MEQ 1,000 ML IV ×3 (06:50→23:30)
[2018-11-18] MEDS: ASPIRIN (EC) 81 MG TAB PO (09:14)
[2018-11-18] MEDS: FINASTERIDE 5 MG TAB PO (09:14)
[2018-11-18] MEDS: GABAPENTIN 100 MG CAP PO ×3 (09:14→20:22)
[2018-11-18] MEDS: POLYETHYLENE GLYCOL 17 GM PACKET GTB (09:14)
[2018-11-18] MEDS: NYSTATIN 15 GM POWDER BTL TOP ×2 (09:15→20:23)
[2018-11-18] MEDS: AMLODIPINE 5 MG TAB PO (09:15)
[2018-11-18] MEDS: AL HYDROX/MG HYDROX/SIMETH 30 ML CUP PO (12:21)
[2018-11-18] MEDS: SOD FERRIC GLUC COMPLX 125 MG in SOD CHLORIDE 0.9% 100 ML IVPB (12:21)
[2018-11-18] MEDS: OXYCODONE/ACETAMINOPHEN (10/325) TAB PO (12:33)
[2018-11-19] MEDS: OXYCODONE/ACETAMINOPHEN (10/325) TAB PO ×3 (01:31→21:49)
[2018-11-19] MEDS: LORAZEPAM 0.5 MG TAB PO ×2 (01:35→22:26)
[2018-11-19] MEDS: LACTULOSE 30ML CUP PO ×2 (02:53→09:13)
[2018-11-19] MEDS: AL HYDROX/MG HYDROX/SIMETH 30 ML CUP PO (04:42)
[2018-11-19] MEDS: D5W-0.45 NACL + KCL 20 MEQ 1,000 ML IV ×2 (04:46→22:22)
[2018-11-19] MEDS: POLYETHYLENE GLYCOL 17 GM PACKET GTB ×2 (09:00→12:25)
[2018-11-19] MEDS: AMLODIPINE 5 MG TAB PO (09:14)
[2018-11-19] MEDS: GABAPENTIN 100 MG CAP PO ×3 (09:14→20:37)
[2018-11-19] MEDS: FINASTERIDE 5 MG TAB PO (09:14)
[2018-11-19] MEDS: NYSTATIN 15 GM POWDER BTL TOP ×2 (09:15→20:37)
[2018-11-19] MEDS: ASPIRIN (EC) 81 MG TAB PO (09:15)
[2018-11-19] MEDS: SOD FERRIC GLUC COMPLX 125 MG in SOD CHLORIDE 0.9% 100 ML IVPB (13:45)
[2018-11-19] MEDS: morphine 4 MG/ML VIAL IV (19:31)
[2018-11-20 05:37] LABS: ADD MAN DIFF? NO
[2018-11-20 05:50] LABS: WHITE BLOOD COUNT 11.4 10^3/ul (4.8-10.8)
[2018-11-20 05:50] LABS: ABNORMAL IP MESSAGE 1; BASOPHILS % 0.2 % (0.0-2.0); EOSINOPHILS % 0.3 % (0.0-7.0); HEMATOCRIT 30.4 % (42.0-52.0); HEMOGLOBIN 9.2 g/dl (14.0-18.0); LYMPHOCYTES # 0.5 10^3/ul (0.8-2.9); MEAN CORPUSCULAR HGB CONC 30.3 g/dl (32.0-37.0); MEAN CORPUSCULAR VOLUME 79.2 fl (82.0-101.0); MEAN PLATELET VOLUME 8.5 fl (7.4-10.4); MONOCYTE # 0.4 10^3/ul (0.3-0.9); MONOCYTES % 3.7 % (0.0-11.0); NEUTROPHIL # 10.4 10^3/ul (1.6-7.5); PLATELET COUNT 377 10^3/UL (140-415); POSITIVE DIFF @See below; RED BLOOD COUNT 3.84 10^6/ul (4.70-6.10); RED CELL DISTRIBUTION WIDTH 15.9 % (11.5-14.5)
[2018-11-20 06:42] LABS: ANION GAP 7 (5-13); BLOOD UREA NITROGEN 7 mg/dl (7-20); CALCIUM 7.9 mg/dl (8.4-10.2); CARBON DIOXIDE 24 mmol/L (21-31); CHLORIDE 105 mmol/L (97-110); CREATININE 0.58 mg/dl (0.61-1.24); GLUCOSE 112 mg/dl (70-220); POTASSIUM 4.5 mmol/L (3.5-5.1); SODIUM 136 mmol/L (135-144)
[2018-11-20] MEDS: ACETAMINOPHEN 325 MG TAB PO (08:32)
[2018-11-20] MEDS: morphine 4 MG/ML VIAL IV ×3 (08:42→23:44)
[2018-11-20] MEDS: POLYETHYLENE GLYCOL 17 GM PACKET GTB (09:00)
[2018-11-20] MEDS: ASPIRIN (EC) 81 MG TAB PO (10:09)
[2018-11-20] MEDS: GABAPENTIN 100 MG CAP PO ×3 (10:09→21:23)
[2018-11-20] MEDS: FINASTERIDE 5 MG TAB PO (10:09)
[2018-11-20] MEDS: AMLODIPINE 5 MG TAB PO (10:10)
[2018-11-20] MEDS: NYSTATIN 15 GM POWDER BTL TOP ×2 (10:10→21:23)
[2018-11-20] MEDS: MEROPENEM 500MG/50 ML (PMX) 50 ML IVPB ×2 (11:55→21:24)
[2018-11-20] MEDS: SOD FERRIC GLUC COMPLX 125 MG in SOD CHLORIDE 0.9% 100 ML IVPB (14:25)
[2018-11-20] MEDS: D5W-0.45 NACL + KCL 20 MEQ 1,000 ML IV (21:23)
[2018-11-21] MEDS: morphine 4 MG/ML VIAL IV ×2 (05:19→09:29)
[2018-11-21 05:44] LABS: ADD MAN DIFF? NO
[2018-11-21 05:48] LABS: WHITE BLOOD COUNT 6.2 10^3/ul (4.8-10.8)
[2018-11-21 05:48] LABS: BASOPHILS % 0.2 % (0.0-2.0); EOSINOPHILS # 0.1 10^3/ul (0.0-0.5); HEMATOCRIT 26.1 % (42.0-52.0); HEMOGLOBIN 7.8 g/dl (14.0-18.0); LYMPHOCYTES # 1.1 10^3/ul (0.8-2.9); LYMPHOCYTES % 17.3 % (15.0-51.0); MEAN CORPUSCULAR HEMOGLOBIN 24.1 pg (29.0-33.0); MEAN CORPUSCULAR HGB CONC 29.9 g/dl (32.0-37.0); MEAN CORPUSCULAR VOLUME 80.8 fl (82.0-101.0); MEAN PLATELET VOLUME 8.3 fl (7.4-10.4); MONOCYTE # 0.9 10^3/ul (0.3-0.9); MONOCYTES % 15.2 % (0.0-11.0); NEUTROPHIL # 4.1 10^3/ul (1.6-7.5); NEUTROPHILS % 65.2 % (39.0-77.0); PLATELET COUNT 279 10^3/UL (140-415); RED BLOOD COUNT 3.23 10^6/ul (4.70-6.10); RED CELL DISTRIBUTION WIDTH 15.9 % (11.5-14.5)
[2018-11-21 06:29] LABS: ANION GAP 3 (5-13); BLOOD UREA NITROGEN 10 mg/dl (7-20); CARBON DIOXIDE 27 mmol/L (21-31); CHLORIDE 109 mmol/L (97-110); CREATININE 0.64 mg/dl (0.61-1.24); GLUCOSE 104 mg/dl (70-220); POTASSIUM 4.3 mmol/L (3.5-5.1); SODIUM 139 mmol/L (135-144)
[2018-11-21] MEDS: morphine 2 MG INJ IV (07:04)
[2018-11-21] MEDS: GABAPENTIN 100 MG CAP PO ×3 (09:00→20:36)
[2018-11-21] MEDS: FINASTERIDE 5 MG TAB PO (09:00)
[2018-11-21] MEDS: POLYETHYLENE GLYCOL 17 GM PACKET GTB (09:00)
[2018-11-21] MEDS: ASPIRIN (EC) 81 MG TAB PO (09:00)
[2018-11-21] MEDS: MEROPENEM 500MG/50 ML (PMX) 50 ML IVPB ×2 (09:15→20:36)
[2018-11-21] MEDS: NYSTATIN 15 GM POWDER BTL TOP ×2 (09:15→20:36)
[2018-11-21 10:08] LABS: IMMEDIATE SPIN CROSSMATCH 1 3
[2018-11-21] MEDS: AMLODIPINE 5 MG TAB PO (10:11)
[2018-11-21] MEDS: SOD FERRIC GLUC COMPLX 125 MG in SOD CHLORIDE 0.9% 100 ML IVPB (14:21)
[2018-11-21] MEDS: OXYCODONE/ACETAMINOPHEN (10/325) TAB PO ×2 (14:27→20:42)
[2018-11-21] MEDS: D5W-0.45 NACL + KCL 20 MEQ 1,000 ML IV ×2 (14:30→20:43)
[2018-11-21 16:05] LABS: ADD MAN DIFF? NO
[2018-11-21 16:09] LABS: BASOPHILS % 0.1 % (0.0-2.0); EOSINOPHILS # 0.2 10^3/ul (0.0-0.5); EOSINOPHILS % 2.3 % (0.0-7.0); HEMATOCRIT 31.1 % (42.0-52.0); HEMOGLOBIN 9.5 g/dl (14.0-18.0); LYMPHOCYTES # 1.3 10^3/ul (0.8-2.9); LYMPHOCYTES % 16.5 % (15.0-51.0); MEAN CORPUSCULAR HEMOGLOBIN 24.6 pg (29.0-33.0); MEAN CORPUSCULAR HGB CONC 30.5 g/dl (32.0-37.0); MEAN CORPUSCULAR VOLUME 80.6 fl (82.0-101.0); MEAN PLATELET VOLUME 8.3 fl (7.4-10.4); MONOCYTE # 1.2 10^3/ul (0.3-0.9); MONOCYTES % 14.5 % (0.0-11.0); NEUTROPHIL # 5.2 10^3/ul (1.6-7.5); NEUTROPHILS % 65.8 % (39.0-77.0); PLATELET COUNT 281 10^3/UL (140-415); RED BLOOD COUNT 3.86 10^6/ul (4.70-6.10); RED CELL DISTRIBUTION WIDTH 15.9 % (11.5-14.5)
[2018-11-21 16:09] LABS: WHITE BLOOD COUNT 7.9 10^3/ul (4.8-10.8)
[2018-11-21] MEDS: AL HYDROX/MG HYDROX/SIMETH 30 ML CUP PO (18:28)
[2018-11-21] MEDS: BISACODYL (EC) 5 MG TAB PO (18:29)
[2018-11-21] MEDS: LUBIPROSTONE 24 MCG CAP PO (20:36)
[2018-11-22 01:22] LABS: TROPONIN-I < 0.012 ng/ml (0.000-0.120)
[2018-11-22 01:45] LABS: OCCULT BLOOD STOOL POSITIVE (NEGATIVE)
[2018-11-22] MEDS: OXYCODONE/ACETAMINOPHEN (10/325) TAB PO ×4 (06:16→22:51)
[2018-11-22 06:44] LABS: TROPONIN-I < 0.012 ng/ml (0.000-0.120)
[2018-11-22] MEDS: GABAPENTIN 100 MG CAP PO ×3 (08:46→20:17)
[2018-11-22] MEDS: POLYETHYLENE GLYCOL 17 GM PACKET GTB (08:47)
[2018-11-22] MEDS: ASPIRIN (EC) 81 MG TAB PO (08:47)
[2018-11-22] MEDS: LUBIPROSTONE 24 MCG CAP PO ×2 (08:47→20:17)
[2018-11-22] MEDS: MEROPENEM 500MG/50 ML (PMX) 50 ML IVPB ×2 (08:47→20:17)
[2018-11-22] MEDS: AMLODIPINE 5 MG TAB PO (08:47)
[2018-11-22] MEDS: FINASTERIDE 5 MG TAB PO (08:47)
[2018-11-22] MEDS: NYSTATIN 15 GM POWDER BTL TOP ×2 (08:49→20:16)
[2018-11-22] MEDS: morphine 4 MG/ML VIAL IV (09:35)
[2018-11-22] MEDS: SOD FERRIC GLUC COMPLX 125 MG in SOD CHLORIDE 0.9% 100 ML IVPB (13:55)
[2018-11-22] MEDS: D5W-0.45 NACL + KCL 20 MEQ 1,000 ML IV (18:30)
[2018-11-23] MEDS: OXYCODONE/ACETAMINOPHEN (10/325) TAB PO ×4 (03:00→22:01)
[2018-11-23] MEDS: D5W-0.45 NACL + KCL 20 MEQ 1,000 ML IV ×2 (05:52→15:54)
[2018-11-23] MEDS: FINASTERIDE 5 MG TAB PO (08:30)
[2018-11-23] MEDS: ASPIRIN (EC) 81 MG TAB PO (08:30)
[2018-11-23] MEDS: AMLODIPINE 5 MG TAB PO (08:30)
[2018-11-23] MEDS: POLYETHYLENE GLYCOL 17 GM PACKET GTB (08:30)
[2018-11-23] MEDS: GABAPENTIN 100 MG CAP PO ×3 (08:30→21:39)
[2018-11-23] MEDS: LUBIPROSTONE 24 MCG CAP PO ×2 (08:30→21:00)
[2018-11-23] MEDS: MEROPENEM 500MG/50 ML (PMX) 50 ML IVPB ×2 (08:30→21:40)
[2018-11-23] MEDS: NYSTATIN 15 GM POWDER BTL TOP ×2 (08:31→21:00)
[2018-11-23] MEDS: ENOXAPARIN 30 MG/0.3 ML SYG SC (08:36)
[2018-11-23] MEDS: AL HYDROX/MG HYDROX/SIMETH 30 ML CUP PO (10:35)
[2018-11-23] MEDS: morphine 4 MG/ML VIAL IV (11:37)
[2018-11-23] MEDS: ENOXAPARIN 60 MG/0.6 ML SYG SC (21:00)
[2018-11-24] MEDS: OXYCODONE/ACETAMINOPHEN (10/325) TAB PO ×4 (06:34→21:53)
[2018-11-24] MEDS: LUBIPROSTONE 24 MCG CAP PO ×2 (08:46→21:16)
[2018-11-24] MEDS: MEROPENEM 500MG/50 ML (PMX) 50 ML IVPB ×2 (08:46→21:13)
[2018-11-24] MEDS: ASPIRIN (EC) 81 MG TAB PO (08:46)
[2018-11-24] MEDS: POLYETHYLENE GLYCOL 17 GM PACKET GTB (08:46)
[2018-11-24] MEDS: GABAPENTIN 100 MG CAP PO ×3 (08:47→21:13)
[2018-11-24] MEDS: FINASTERIDE 5 MG TAB PO (08:47)
[2018-11-24] MEDS: AMLODIPINE 5 MG TAB PO (08:47)
[2018-11-24] MEDS: NYSTATIN 15 GM POWDER BTL TOP ×2 (08:48→21:17)
[2018-11-24] MEDS: ENOXAPARIN 60 MG/0.6 ML SYG SC ×2 (10:03→21:16)
[2018-11-24] MEDS: BISACODYL (EC) 5 MG TAB PO (10:18)
[2018-11-24] MEDS: AL HYDROX/MG HYDROX/SIMETH 30 ML CUP PO ×2 (12:22→23:18)
[2018-11-24] MEDS: D5W-0.45 NACL + KCL 20 MEQ 1,000 ML IV ×2 (12:36→22:30)
[2018-11-25] MEDS: MEROPENEM 500MG/50 ML (PMX) 50 ML IVPB ×2 (08:28→20:27)
[2018-11-25] MEDS: NYSTATIN 15 GM POWDER BTL TOP ×2 (08:28→20:31)
[2018-11-25] MEDS: POLYETHYLENE GLYCOL 17 GM PACKET GTB (08:28)
[2018-11-25] MEDS: AMLODIPINE 5 MG TAB PO (08:29)
[2018-11-25] MEDS: GABAPENTIN 100 MG CAP PO ×3 (08:29→20:27)
[2018-11-25] MEDS: LUBIPROSTONE 24 MCG CAP PO ×2 (08:29→20:27)
[2018-11-25] MEDS: ASPIRIN (EC) 81 MG TAB PO (08:29)
[2018-11-25] MEDS: FINASTERIDE 5 MG TAB PO (08:29)
[2018-11-25] MEDS: ENOXAPARIN 60 MG/0.6 ML SYG SC ×2 (08:31→20:29)
[2018-11-25] MEDS: OXYCODONE/ACETAMINOPHEN (10/325) TAB PO ×2 (08:40→18:29)
[2018-11-25] MEDS: D5W-0.45 NACL + KCL 20 MEQ 1,000 ML IV ×2 (08:40→17:32)
[2018-11-25] MEDS: morphine 4 MG/ML VIAL IV (12:41)
[2018-11-26] MEDS: OXYCODONE/ACETAMINOPHEN (10/325) TAB PO (04:37)
[2018-11-26 05:56] LABS: ADD MAN DIFF? NO
[2018-11-26 06:05] LABS: WHITE BLOOD COUNT 7.6 10^3/ul (4.8-10.8)
[2018-11-26 06:05] LABS: BASOPHILS % 0.5 % (0.0-2.0); EOSINOPHILS # 0.3 10^3/ul (0.0-0.5); EOSINOPHILS % 3.5 % (0.0-7.0); HEMATOCRIT 32.3 % (42.0-52.0); HEMOGLOBIN 9.8 g/dl (14.0-18.0); LYMPHOCYTES # 1.9 10^3/ul (0.8-2.9); MEAN CORPUSCULAR HEMOGLOBIN 25.1 pg (29.0-33.0); MEAN CORPUSCULAR HGB CONC 30.3 g/dl (32.0-37.0); MEAN CORPUSCULAR VOLUME 82.6 fl (82.0-101.0); MEAN PLATELET VOLUME 8.2 fl (7.4-10.4); MONOCYTE # 0.8 10^3/ul (0.3-0.9); MONOCYTES % 10.4 % (0.0-11.0); NEUTROPHIL # 4.6 10^3/ul (1.6-7.5); NEUTROPHILS % 59.9 % (39.0-77.0); PLATELET COUNT 396 10^3/UL (140-415); RED BLOOD COUNT 3.91 10^6/ul (4.70-6.10); RED CELL DISTRIBUTION WIDTH 17.7 % (11.5-14.5)
[2018-11-26 06:50] LABS: ANION GAP 4 (5-13)
[2018-11-26 07:04] LABS: CHLORIDE 106 mmol/L (97-110); POTASSIUM 4.3 mmol/L (3.5-5.1); SODIUM 139 mmol/L (135-144)
[2018-11-26 07:05] LABS: BLOOD UREA NITROGEN 10 mg/dl (7-20); CALCIUM 8.1 mg/dl (8.4-10.2); CARBON DIOXIDE 29 mmol/L (21-31); CREATININE 0.63 mg/dl (0.61-1.24); GLUCOSE 96 mg/dl (70-220)
[2018-11-26] MEDS: MEROPENEM 500MG/50 ML (PMX) 50 ML IVPB ×2 (09:06→21:10)
[2018-11-26] MEDS: POLYETHYLENE GLYCOL 17 GM PACKET GTB (09:07)
[2018-11-26] MEDS: ASPIRIN (EC) 81 MG TAB PO (09:07)
[2018-11-26] MEDS: LUBIPROSTONE 24 MCG CAP PO ×2 (09:07→21:10)
[2018-11-26] MEDS: GABAPENTIN 100 MG CAP PO ×3 (09:07→21:10)
[2018-11-26] MEDS: FINASTERIDE 5 MG TAB PO (09:07)
[2018-11-26] MEDS: NYSTATIN 15 GM POWDER BTL TOP ×2 (09:08→21:18)
[2018-11-26] MEDS: AMLODIPINE 5 MG TAB PO (09:08)
[2018-11-26] MEDS: ENOXAPARIN 60 MG/0.6 ML SYG SC ×2 (09:21→21:12)
[2018-11-26] MEDS: morphine 4 MG/ML VIAL IV ×3 (13:26→23:26)
[2018-11-26] MEDS: METOPROLOL 25 MG TAB PO (21:00)
[2018-11-27] MEDS: OXYCODONE/ACETAMINOPHEN (10/325) TAB PO ×3 (01:11→14:53)
[2018-11-27] MEDS: BISACODYL (EC) 5 MG TAB PO (08:42)
[2018-11-27] MEDS: LUBIPROSTONE 24 MCG CAP PO ×2 (08:45→20:14)
[2018-11-27] MEDS: ASPIRIN (EC) 81 MG TAB PO (08:46)
[2018-11-27] MEDS: GABAPENTIN 100 MG CAP PO ×3 (08:46→20:11)
[2018-11-27] MEDS: AMLODIPINE 5 MG TAB PO (08:47)
[2018-11-27] MEDS: METOPROLOL 25 MG TAB PO ×2 (08:47→20:14)
[2018-11-27] MEDS: FINASTERIDE 5 MG TAB PO (08:47)
[2018-11-27] MEDS: POLYETHYLENE GLYCOL 17 GM PACKET GTB (08:47)
[2018-11-27] MEDS: NYSTATIN 15 GM POWDER BTL TOP ×2 (08:48→20:14)
[2018-11-27] MEDS: ENOXAPARIN 60 MG/0.6 ML SYG SC ×2 (09:02→20:13)
[2018-11-27] MEDS: morphine 4 MG/ML VIAL IV (19:38)
[2018-11-28] MEDS: morphine 4 MG/ML VIAL IV ×3 (01:36→12:08)
[2018-11-28] MEDS: LUBIPROSTONE 24 MCG CAP PO (09:30)
[2018-11-28] MEDS: FINASTERIDE 5 MG TAB PO (09:30)
[2018-11-28] MEDS: ASPIRIN (EC) 81 MG TAB PO (09:31)
[2018-11-28] MEDS: METOPROLOL 25 MG TAB PO (09:31)
[2018-11-28] MEDS: GABAPENTIN 100 MG CAP PO ×2 (09:31→12:08)
[2018-11-28] MEDS: AMLODIPINE 5 MG TAB PO (09:31)
[2018-11-28] MEDS: POLYETHYLENE GLYCOL 17 GM PACKET GTB (09:32)
[2018-11-28] MEDS: ENOXAPARIN 60 MG/0.6 ML SYG SC (09:33)
[2018-11-28] MEDS: NYSTATIN 15 GM POWDER BTL TOP (12:09)
== END 2018-11-28 14:30 | DRG 543 ==
LOC: 5EC 11-26 15:40 → E/R 16:48 → 2NE 17:05
PROC: 30233N1 Transfusion of Nonautologous Red Blood Cells into Peripheral Vein, Percutaneous Approach (ICD-10-PCS; principal; 2018-11-21)
DX: M84.452A Pathological fracture, left femur, initial encounter for fracture (principal); C18.3 Malignant neoplasm of hepatic flexure; N39.0 Urinary tract infection, site not specified; N13.30 Unspecified hydronephrosis; D68.69 Other thrombophilia; K56.41 Fecal impaction; K52.89 Other specified noninfective gastroenteritis and colitis; I48.0 Paroxysmal atrial fibrillation; Z79.01 Long term (current) use of anticoagulants; F22 Delusional disorders; D50.0 Iron deficiency anemia secondary to blood loss (chronic); K44.9 Diaphragmatic hernia without obstruction or gangrene; N40.0 Benign prostatic hyperplasia without lower urinary tract symptoms; Z99.3 Dependence on wheelchair; R19.5 Other fecal abnormalities; Z91.81 History of falling; Z79.02 Long term (current) use of antithrombotics/antiplatelets; B96.20 Unspecified Escherichia coli [E. coli] as the cause of diseases classified elsewhere
CPT/HCPCS: 36430; 71045; 74018; 74176; 80048; 80053; 81001; 82270; 83690; 83735; 84484; 85025; 86850; 86900; 86901; 86920; 87040-91; 87086; 93005; 99285-25

== ENCOUNTER 2018-12-28 16:56 | Inpatient (IN) | payer MEDICARE, OTHER ==
[2018-12-28] MEDS: SOD CHLORIDE 0.9% 1,000 ML IV (17:12)
[2018-12-28] MEDS: ONDANSETRON 4 MG INJ IV (17:13)
[2018-12-28] MEDS: morphine 4 MG/ML VIAL IV (17:13)
[2018-12-28] MEDS: FAMOTIDINE 20 MG INJ IV (17:13)
[2018-12-28 17:42] LABS: ADD MAN DIFF? NO
[2018-12-28 17:47] LABS: BASOPHILS % 0.3 % (0.0-2.0); EOSINOPHILS # 0.1 10^3/ul (0.0-0.5); HEMATOCRIT 42.2 % (42.0-52.0); HEMOGLOBIN 13.5 g/dl (14.0-18.0); LYMPHOCYTES # 1.4 10^3/ul (0.8-2.9); LYMPHOCYTES % 10.8 % (15.0-51.0); MEAN CORPUSCULAR HEMOGLOBIN 27.8 pg (29.0-33.0); MEAN CORPUSCULAR VOLUME 86.8 fl (82.0-101.0); MEAN PLATELET VOLUME 8.7 fl (7.4-10.4); MONOCYTE # 0.7 10^3/ul (0.3-0.9); MONOCYTES % 5.1 % (0.0-11.0); NEUTROPHILS % 82.2 % (39.0-77.0); PLATELET COUNT 336 10^3/UL (140-415); RED BLOOD COUNT 4.86 10^6/ul (4.70-6.10); RED CELL DISTRIBUTION WIDTH 20.2 % (11.5-14.5)
[2018-12-28 17:47] LABS: WHITE BLOOD COUNT 13.4 10^3/ul (4.8-10.8)
[2018-12-28] MEDS ORDERED: ACETAMINOPHEN 325 MG TAB PO (19:30)
[2018-12-28] MEDS ORDERED: ONDANSETRON 4 MG INJ IV (19:30)
[2018-12-28 19:46] LABS: ALANINE AMINOTRANSFERASE 15 IU/L (13-69); ALBUMIN/GLOBULIN RATIO 1.25; ALKALINE PHOSPHATASE 97 IU/L (42-121); ANION GAP 11 (5-13); ASPARTATE AMINO TRANSFERASE 19 IU/L (15-46); BILIRUBIN,INDIRECT 0.4 mg/dl (0-1.1); BILIRUBIN,TOTAL 0.4 mg/dl (0.2-1.3); BLOOD UREA NITROGEN 16 mg/dl (7-20); CALCIUM 8.9 mg/dl (8.4-10.2); CARBON DIOXIDE 23 mmol/L (21-31); CHLORIDE 108 mmol/L (97-110); CREATININE 0.82 mg/dl (0.61-1.24); GLUCOSE 139 mg/dl (70-220); LIPASE 68 U/L (23-300); POTASSIUM 4.3 mmol/L (3.5-5.1); SODIUM 142 mmol/L (135-144); TOTAL PROTEIN 7.2 g/dl (6.1-8.1)
[2018-12-28 19:58] LABS: TROPONIN-I < 0.012 ng/ml (0.000-0.120)
[2018-12-28] MEDS ORDERED: LACTULOSE ENEMA 1,000 ML BTL PR (22:00)
[2018-12-29] MEDS: DEXTROSE 5%-0.45% NACL 1,000 ML IV ×2 (03:00→15:46)
[2018-12-29] MEDS: LACTULOSE 30ML CUP PO ×5 (04:39→20:14)
[2018-12-29 05:18] LABS: ADD MAN DIFF? NO
[2018-12-29 05:25] LABS: WHITE BLOOD COUNT 14.1 10^3/ul (4.8-10.8)
[2018-12-29 05:25] LABS: BASOPHILS % 0.1 % (0.0-2.0); HEMATOCRIT 42.4 % (42.0-52.0); HEMOGLOBIN 13.3 g/dl (14.0-18.0); LYMPHOCYTES # 0.8 10^3/ul (0.8-2.9); LYMPHOCYTES % 5.7 % (15.0-51.0); MEAN CORPUSCULAR HEMOGLOBIN 27.7 pg (29.0-33.0); MEAN CORPUSCULAR HGB CONC 31.4 g/dl (32.0-37.0); MEAN CORPUSCULAR VOLUME 88.1 fl (82.0-101.0); MEAN PLATELET VOLUME 8.5 fl (7.4-10.4); MONOCYTE # 1.1 10^3/ul (0.3-0.9); MONOCYTES % 7.7 % (0.0-11.0); NEUTROPHIL # 12.1 10^3/ul (1.6-7.5); NEUTROPHILS % 85.9 % (39.0-77.0); PLATELET COUNT 310 10^3/UL (140-415); RED BLOOD COUNT 4.81 10^6/ul (4.70-6.10); RED CELL DISTRIBUTION WIDTH 20.4 % (11.5-14.5)
[2018-12-29 05:54] LABS: ANION GAP 10 (5-13); BLOOD UREA NITROGEN 18 mg/dl (7-20); CARBON DIOXIDE 27 mmol/L (21-31); CHLORIDE 105 mmol/L (97-110); CREATININE 0.74 mg/dl (0.61-1.24); GLUCOSE 148 mg/dl (70-220); POTASSIUM 5.1 mmol/L (3.5-5.1); SODIUM 142 mmol/L (135-144)
[2018-12-29] MEDS: MAGNESIUM CITRATE 300 ML BTL PO (13:24)
[2018-12-29] MEDS ORDERED: LOPERAMIDE 2 MG CAP PO (15:00)
[2018-12-29] MEDS: LUBIPROSTONE 24 MCG CAP PO ×2 (15:00→20:13)
[2018-12-29] MEDS: APIXABAN 5 MG TABLET PO ×2 (15:00→20:13)
[2018-12-29] MEDS ORDERED: GUAIFENESIN/DM 5ML CUP PO ×2 (15:00)
[2018-12-29] MEDS ORDERED: ZOLPIDEM 5 MG TAB PO (15:00)
[2018-12-29] MEDS: AMLODIPINE 5 MG TAB PO (15:00)
[2018-12-29] MEDS ORDERED: NITROGLYCERIN (SL) 0.4 MG TAB SL (15:00)
[2018-12-29] MEDS: FINASTERIDE 5 MG TAB PO (15:00)
[2018-12-29] MEDS: ASPIRIN (EC) 81 MG TAB PO (15:00)
[2018-12-29] MEDS ORDERED: ACETAMINOPHEN 325 MG TAB PO (15:00)
[2018-12-29] MEDS: ONDANSETRON 4 MG INJ IV ×2 (15:14→20:21)
[2018-12-29] MEDS: METOPROLOL 25 MG TAB PO ×2 (15:18→20:11)
[2018-12-29] MEDS: METOPROLOL 5 MG INJ IV (16:46)
[2018-12-29] MEDS ORDERED: PENDING SANTYL ORDER FOR WOUND CARE XX (17:00)
[2018-12-29] MEDS: AL HYDROX/MG HYDROX/SIMETH 30 ML CUP PO (18:02)
[2018-12-29] MEDS: morphine 2 MG INJ IV ×2 (18:07→22:53)
[2018-12-29 18:48] LABS: TROPONIN-I < 0.012 ng/ml (0.000-0.120)
[2018-12-29] MEDS: GABAPENTIN 100 MG CAP PO ×2 (20:11→20:19)
[2018-12-29] MEDS: MELATONIN 3 MG TABLET PO (20:12)
[2018-12-29] MEDS: FERROUS SULFATE (EC) 325 MG TAB PO ×2 (20:13→20:19)
[2018-12-29] MEDS: OXYCODONE/ACETAMINOPHEN (10/325) TAB PO (20:13)
[2018-12-29] MEDS ORDERED: MELATONIN 3 MG TABLET PO (21:00)
[2018-12-30] MEDS: LACTULOSE 30ML CUP PO ×3 (00:23→07:32)
[2018-12-30] MEDS: DEXTROSE 5%-0.45% NACL 1,000 ML IV ×3 (05:10→21:30)
[2018-12-30] MEDS: PANTOPRAZOLE (EC) 40 MG TAB PO (05:38)
[2018-12-30] MEDS: METOPROLOL 25 MG TAB PO ×2 (07:46→21:00)
[2018-12-30] MEDS: POLYETHYLENE GLYCOL 17 GM PACKET PO (07:47)
[2018-12-30] MEDS: MAGNESIUM HYDROXIDE 30ML CUP PO (07:47)
[2018-12-30] MEDS: FINASTERIDE 5 MG TAB PO (08:23)
[2018-12-30] MEDS: LUBIPROSTONE 24 MCG CAP PO ×2 (08:23→21:22)
[2018-12-30] MEDS: GABAPENTIN 100 MG CAP PO ×4 (08:23→21:00)
[2018-12-30] MEDS: NYSTATIN 15 GM POWDER BTL TOP (08:24)
[2018-12-30] MEDS: MULTIVITAMINS/MINERALS TAB PO ×2 (08:24→08:31)
[2018-12-30] MEDS: FERROUS SULFATE (EC) 325 MG TAB PO ×3 (08:24→21:00)
[2018-12-30] MEDS: ASPIRIN (EC) 81 MG TAB PO (08:24)
[2018-12-30] MEDS: ASCORBIC ACID 500 MG TAB PO ×2 (08:24→08:31)
[2018-12-30] MEDS: APIXABAN 5 MG TABLET PO ×2 (08:24→21:22)
[2018-12-30] MEDS: AMLODIPINE 5 MG TAB PO (09:00)
[2018-12-30] MEDS: morphine 2 MG INJ IV ×2 (11:06→21:22)
[2018-12-30] MEDS: AL HYDROX/MG HYDROX/SIMETH 30 ML CUP PO (15:26)
[2018-12-30] MEDS: MUPIROCIN 2% 22 GM OINT TOP ×2 (16:00→21:23)
[2018-12-30] MEDS: MELATONIN 3 MG TABLET PO (21:22)
[2018-12-30] MEDS: ONDANSETRON 4 MG INJ IV (21:22)
[2018-12-30] MEDS: OXYCODONE/ACETAMINOPHEN (10/325) TAB PO (22:52)
[2018-12-31] MEDS: OXYCODONE/ACETAMINOPHEN (10/325) TAB PO ×5 (04:17→23:51)
[2018-12-31] MEDS: PANTOPRAZOLE (EC) 40 MG TAB PO (04:17)
[2018-12-31] MEDS: POLYETHYLENE GLYCOL 17 GM PACKET PO (08:09)
[2018-12-31] MEDS: FINASTERIDE 5 MG TAB PO (08:10)
[2018-12-31] MEDS: APIXABAN 5 MG TABLET PO ×2 (08:10→20:30)
[2018-12-31] MEDS: AMLODIPINE 5 MG TAB PO (08:10)
[2018-12-31] MEDS: ASPIRIN (EC) 81 MG TAB PO (08:10)
[2018-12-31] MEDS: MAGNESIUM HYDROXIDE 30ML CUP PO ×2 (08:10→09:00)
[2018-12-31] MEDS: LUBIPROSTONE 24 MCG CAP PO ×2 (08:10→20:31)
[2018-12-31] MEDS: MUPIROCIN 2% 22 GM OINT TOP ×2 (08:11→20:32)
[2018-12-31] MEDS: ASCORBIC ACID 500 MG TAB PO (08:15)
[2018-12-31] MEDS: NYSTATIN 15 GM POWDER BTL TOP (08:15)
[2018-12-31] MEDS: FERROUS SULFATE (EC) 325 MG TAB PO ×2 (08:16→20:31)
[2018-12-31] MEDS: GABAPENTIN 100 MG CAP PO ×2 (08:16→12:33)
[2018-12-31] MEDS: METOPROLOL 25 MG TAB PO ×3 (08:16→20:32)
[2018-12-31] MEDS: MULTIVITAMINS/MINERALS TAB PO (08:16)
[2018-12-31] MEDS: DEXTROSE 5%-0.45% NACL 1,000 ML IV (12:32)
[2018-12-31 17:40] LABS: TROPONIN-I < 0.012 ng/ml (0.000-0.120)
[2018-12-31] MEDS: METHYLNALTREXONE 12 MG/0.6 ML VIAL SC (18:55)
[2018-12-31] MEDS: GABAPENTIN 300 MG CAP PO (20:31)
[2018-12-31] MEDS: MELATONIN 3 MG TABLET PO (20:31)
[2019-01-01 01:40] LABS: ANION GAP 7 (5-13); BLOOD UREA NITROGEN 17 mg/dl (7-20); CALCIUM 7.8 mg/dl (8.4-10.2); CARBON DIOXIDE 23 mmol/L (21-31); CHLORIDE 109 mmol/L (97-110); CREATININE 0.64 mg/dl (0.61-1.24); GLUCOSE 137 mg/dl (70-220); POTASSIUM 3.8 mmol/L (3.5-5.1); SODIUM 139 mmol/L (135-144)
[2019-01-01] MEDS: PANTOPRAZOLE (EC) 40 MG TAB PO (05:46)
[2019-01-01] MEDS: OXYCODONE/ACETAMINOPHEN (10/325) TAB PO ×3 (05:47→19:56)
[2019-01-01] MEDS: FINASTERIDE 5 MG TAB PO (08:45)
[2019-01-01] MEDS: MAGNESIUM HYDROXIDE 30ML CUP PO (08:45)
[2019-01-01] MEDS: MULTIVITAMINS/MINERALS TAB PO (08:45)
[2019-01-01] MEDS: AMLODIPINE 5 MG TAB PO (08:46)
[2019-01-01] MEDS: METOPROLOL 25 MG TAB PO ×2 (08:46→21:09)
[2019-01-01] MEDS: GABAPENTIN 300 MG CAP PO ×3 (08:48→21:07)
[2019-01-01] MEDS: LUBIPROSTONE 24 MCG CAP PO ×2 (08:48→21:07)
[2019-01-01] MEDS: APIXABAN 5 MG TABLET PO ×2 (08:48→21:07)
[2019-01-01] MEDS: FERROUS SULFATE (EC) 325 MG TAB PO ×2 (08:49→21:00)
[2019-01-01] MEDS: NYSTATIN 15 GM POWDER BTL TOP (08:49)
[2019-01-01] MEDS: ASCORBIC ACID 500 MG TAB PO (08:49)
[2019-01-01] MEDS: MUPIROCIN 2% 22 GM OINT TOP ×2 (09:57→21:08)
[2019-01-01] MEDS: POLYETHYLENE GLYCOL 17 GM PACKET PO (09:58)
[2019-01-01] MEDS: MELATONIN 3 MG TABLET PO (21:07)
[2019-01-02] MEDS: PANTOPRAZOLE (EC) 40 MG TAB PO (05:17)
[2019-01-02] MEDS: OXYCODONE/ACETAMINOPHEN (10/325) TAB PO ×4 (05:18→20:28)
[2019-01-02] MEDS: GABAPENTIN 300 MG CAP PO ×3 (08:51→20:28)
[2019-01-02] MEDS: APIXABAN 5 MG TABLET PO ×2 (08:52→20:27)
[2019-01-02] MEDS: ASCORBIC ACID 500 MG TAB PO (08:52)
[2019-01-02] MEDS: METOPROLOL 25 MG TAB PO ×2 (08:53→20:27)
[2019-01-02] MEDS: AMLODIPINE 5 MG TAB PO (08:53)
[2019-01-02] MEDS: FINASTERIDE 5 MG TAB PO (08:53)
[2019-01-02] MEDS: LUBIPROSTONE 24 MCG CAP PO ×2 (08:54→20:26)
[2019-01-02] MEDS: MAGNESIUM HYDROXIDE 30ML CUP PO (08:55)
[2019-01-02] MEDS: POLYETHYLENE GLYCOL 17 GM PACKET PO (08:57)
[2019-01-02] MEDS: FERROUS SULFATE (EC) 325 MG TAB PO ×2 (08:57→20:25)
[2019-01-02] MEDS: NYSTATIN 15 GM POWDER BTL TOP (08:57)
[2019-01-02] MEDS: MUPIROCIN 2% 22 GM OINT TOP ×2 (08:58→20:28)
[2019-01-02] MEDS: MULTIVITAMINS/MINERALS TAB PO (08:59)
[2019-01-02] MEDS: METHYLNALTREXONE 12 MG/0.6 ML VIAL SC (18:26)
[2019-01-02] MEDS: MELATONIN 3 MG TABLET PO (20:27)
[2019-01-03] MEDS: PANTOPRAZOLE (EC) 40 MG TAB PO (05:44)
[2019-01-03] MEDS: OXYCODONE/ACETAMINOPHEN (10/325) TAB PO ×4 (05:50→23:22)
[2019-01-03 05:53] LABS: ADD MAN DIFF? NO
[2019-01-03 06:11] LABS: BASOPHILS % 0.2 % (0.0-2.0); EOSINOPHILS # 0.1 10^3/ul (0.0-0.5); EOSINOPHILS % 1.1 % (0.0-7.0); HEMOGLOBIN 11.6 g/dl (14.0-18.0); LYMPHOCYTES # 1.2 10^3/ul (0.8-2.9); LYMPHOCYTES % 9.7 % (15.0-51.0); MEAN CORPUSCULAR HEMOGLOBIN 28.1 pg (29.0-33.0); MEAN CORPUSCULAR HGB CONC 32.2 g/dl (32.0-37.0); MEAN CORPUSCULAR VOLUME 87.2 fl (82.0-101.0); MEAN PLATELET VOLUME 9.5 fl (7.4-10.4); MONOCYTE # 1.2 10^3/ul (0.3-0.9); MONOCYTES % 9.6 % (0.0-11.0); NEUTROPHIL # 9.6 10^3/ul (1.6-7.5); NEUTROPHILS % 78.4 % (39.0-77.0); PLATELET COUNT 268 10^3/UL (140-415); RED BLOOD COUNT 4.13 10^6/ul (4.70-6.10); RED CELL DISTRIBUTION WIDTH 19.1 % (11.5-14.5)
[2019-01-03 06:11] LABS: WHITE BLOOD COUNT 12.3 10^3/ul (4.8-10.8)
[2019-01-03 06:23] LABS: ANION GAP 6 (5-13); BLOOD UREA NITROGEN 16 mg/dl (7-20); CALCIUM 8.5 mg/dl (8.4-10.2); CARBON DIOXIDE 28 mmol/L (21-31); CHLORIDE 104 mmol/L (97-110); GLUCOSE 86 mg/dl (70-220); POTASSIUM 4.2 mmol/L (3.5-5.1); SODIUM 138 mmol/L (135-144)
[2019-01-03] MEDS: FERROUS SULFATE (EC) 325 MG TAB PO ×3 (09:00→21:00)
[2019-01-03] MEDS: ASCORBIC ACID 500 MG TAB PO ×2 (09:00→09:18)
[2019-01-03] MEDS: LUBIPROSTONE 24 MCG CAP PO ×2 (09:17→21:00)
[2019-01-03] MEDS: APIXABAN 5 MG TABLET PO ×2 (09:17→21:54)
[2019-01-03] MEDS: FINASTERIDE 5 MG TAB PO (09:17)
[2019-01-03] MEDS: POLYETHYLENE GLYCOL 17 GM PACKET PO (09:17)
[2019-01-03] MEDS: MAGNESIUM HYDROXIDE 30ML CUP PO (09:17)
[2019-01-03] MEDS: METOPROLOL 25 MG TAB PO (09:17)
[2019-01-03] MEDS: MULTIVITAMINS/MINERALS TAB PO (09:18)
[2019-01-03] MEDS: NYSTATIN 15 GM POWDER BTL TOP (09:18)
[2019-01-03] MEDS: MUPIROCIN 2% 22 GM OINT TOP ×2 (09:18→21:54)
[2019-01-03] MEDS: GABAPENTIN 300 MG CAP PO ×3 (09:18→21:51)
[2019-01-03] MEDS: AMLODIPINE 5 MG TAB PO (09:18)
[2019-01-03] MEDS: METOPROLOL 50 MG TAB PO (21:52)
[2019-01-03] MEDS: MELATONIN 3 MG TABLET PO (21:53)
[2019-01-04] MEDS: OXYCODONE/ACETAMINOPHEN (10/325) TAB PO ×2 (03:53→09:43)
[2019-01-04] MEDS: PANTOPRAZOLE (EC) 40 MG TAB PO (06:26)
[2019-01-04] MEDS: MULTIVITAMINS/MINERALS TAB PO (09:00)
[2019-01-04] MEDS: POLYETHYLENE GLYCOL 17 GM PACKET PO (09:00)
[2019-01-04] MEDS: ASCORBIC ACID 500 MG TAB PO (09:00)
[2019-01-04] MEDS: METOPROLOL 50 MG TAB PO (09:00)
[2019-01-04] MEDS: FERROUS SULFATE (EC) 325 MG TAB PO (09:00)
[2019-01-04] MEDS: AMLODIPINE 2.5 MG TAB PO (09:00)
[2019-01-04] MEDS: GABAPENTIN 300 MG CAP PO ×2 (09:35→13:30)
[2019-01-04] MEDS: APIXABAN 5 MG TABLET PO (09:36)
[2019-01-04] MEDS: FINASTERIDE 5 MG TAB PO (09:36)
[2019-01-04] MEDS: LUBIPROSTONE 24 MCG CAP PO (09:38)
[2019-01-04] MEDS: MAGNESIUM HYDROXIDE 30ML CUP PO (09:38)
[2019-01-04] MEDS: MUPIROCIN 2% 22 GM OINT TOP (09:46)
[2019-01-04] MEDS: NYSTATIN 15 GM POWDER BTL TOP (09:46)
[2019-01-04] MEDS ORDERED: METOPROLOL 25 MG TAB PO (21:00)
== END 2019-01-04 16:03 | DRG 375 ==
LOC: 2NE 19:24 → 5EC 12-29 11:13 → E/R 16:56 → 6WM 12-29 16:23
PROVIDERS: Internal Medicine
DX: C18.9 Malignant neoplasm of colon, unspecified (principal); F20.0 Paranoid schizophrenia; L89.152 Pressure ulcer of sacral region, stage 2; I11.0 Hypertensive heart disease with heart failure; G62.9 Polyneuropathy, unspecified; I50.9 Heart failure, unspecified; I48.2 Chronic atrial fibrillation; L89.621 Pressure ulcer of left heel, stage 1; L89.611 Pressure ulcer of right heel, stage 1; S72.142G Displaced intertrochanteric fracture of left femur, subsequent encounter for closed fracture with delayed healing; K40.90 Unilateral inguinal hernia, without obstruction or gangrene, not specified as recurrent; K56.41 Fecal impaction; I25.10 Atherosclerotic heart disease of native coronary artery without angina pectoris; E78.5 Hyperlipidemia, unspecified; N40.0 Benign prostatic hyperplasia without lower urinary tract symptoms; X58.XXXD Exposure to other specified factors, subsequent encounter; Z79.82 Long term (current) use of aspirin; Z79.02 Long term (current) use of antithrombotics/antiplatelets
CPT/HCPCS: 36415; 71045; 74018; 74176; 80048; 80053; 83690; 83735; 84484; 85025; 87081; 93005; 96374; 96375; 99285-25